=== PATIENT | female | born 1950 | race Caucasian/White ===

== ENCOUNTER → 2020-10-29 11:51 | Outpatient (CLI) | payer MEDICARE, SELFPAY | PROVIDERS: Visit Provider Internal Medicine Gastroenterology | DX: Z01.812 Encounter for preprocedural laboratory examination (principal); Z20.822 Contact with and (suspected) exposure to COVID-19; Z12.11 Encounter for screening for malignant neoplasm of colon | CPT/HCPCS: U0003 ==

== ENCOUNTER 2020-11-01 08:19 | Day surgery (SDC) | payer MEDICARE, SELFPAY ==
[2020-10-26 12:29] VITALS: BMI 24.9
[2020-11-01 08:46] VITALS: BP 161/81; PULSE 60; RESP 16; TEMP 36.7; O2SAT 98
--- NOTE | 2020-11-01 08:55 | P.PN_ITS ---
[facility] Anesthesia Checklist - Patient Identification Patient Identification: Arm Band - Structural Data Admitted From: Home Planned Operative Procedure/s: Colonoscopy Consent for Planned Operative Procedure(s) Verified: Yes - NPO Status Verified Time NPO: 00:00 - Airway Assessment C-Spine Mobility Assessed: Yes TMJ Mobility Assessed: Yes Dentition: Dentures-good fit - Neurological Assessment Level of Consciousness: Awake Hx Seizures: No Numbness or tingling in extremities: No - Anesthesia Plan Anesthesia Risk discussed: Yes Anesthesia Plan: Verified ASA Class: III Anesthesia Type: MAC [facility] History I have reviewed the patient's past medical history: Yes Medical History: Reports:: Chronic Obstructive Pulmonary Disease (COPD), Coronary Artery Disease, Hypertension Denies:: Cancer, Diabetes Mellitus Type 1, Diabetes Mellitus Type 2, Internal Pacemaker, MRSA, Seizures *Have you ever received a pneumonia vaccine?: Yes *Have you received a flu vaccine this season?: Yes Anesthesia experience/problems:: None Laterality Cases: Left: Other Other Surgeries: No: Pacemaker Amputation: No Fractures: No - *Social History Last grade of school completed: High school graduate Smoking Status: Never smoker Alcohol Intake: never Substance Use Type: denies use *Occupational Status:: retired Housing: house *Travel in the last 8 weeks: None Family Hx:: Cancer, Coronary Artery Disease
[2020-11-01 09:02] VITALS: O2SAT 98
--- NOTE | 2020-11-01 09:35 | HMH.PROC ---
[facility] Procedure Note Procedure Note:: Colonoscopy Procedure Report: Colonoscopy with cold snare polypectomy and hemorrhoid band ligation Endoscopist: Irving Brown II, MD Referring physician: Abdullahi Vasquez MD Date of Procedure: November 01, 2020 Equipment: Olympus 190 variable stiffness pediatric colonoscope Sedation: MAC sedation Indication: Mrs. Soni is a 70-year-old female who is here for colonoscopy. She has had some chronic constipation, bloating, gassiness and intermittent lower abdominal discomfort. She also notes bright red blood that occurs with most bowel movements daily which she attributes to possible internal hemorrhoids. She does have a personal history of adenomatous colon polyps. She had a colonoscopy with [facility] in June 2006. Her last colonoscopy 4 years ago (Dr. Morris [place]) revealed polyps which were removed. She reports no family history of colon cancer. She did have an ERCP with [facility] in December 2006. Procedure: Prior to the procedure, a history and physical exam was performed, and patient's medications and allergies were reviewed. The risks, benefits and alternatives of the sedation and procedure were discussed with the patient. All questions were answered and informed consent was obtained. The patient was brought to the procedure room. Patient identification and proposed procedure were verified by the physician and the nurse. The patient was placed in a left lateral decubitus position and the scope was passed under direct vision. Throughout the procedure, the patient's blood pressure, pulse, and oxygen saturations were monitored continuously. The colonoscopy was accomplished without difficulty. The patient tolerated the procedure well. Findings: On digital rectal examination there was normal rectal tone. There were no external hemorrhoids. The colonoscope was introduced through the anal canal to the rectum and advanced to the cecum. The ileocecal valve and appendiceal orifice were identified. The scope was advanced a short distance into the ileum which appeared grossly normal. The scope was then withdrawn into the colon. There were 11 colon polyps (cecum x4 (3, 5, 7 and 8 mm), ascending x2 (4 and 7 mm), transverse x2 (4 and 5 mm) and descending x3 (3, 4 and 4 mm)) which were all removed via cold snare polypectomy. There were extensive scattered diverticuli throughout the colon but more predominantly in the descending and sigmoid colon (LEFT colon). The rectum itself was normal. Upon retroflexion within the rectum there were grade 2 internal hemorrhoids. These 3 columns of hemorrhoids were banded using 3 bands with excellent ligation effect. The preparation was excellent throughout with [place] Preparation Score of 9. The cecal time was 18 minutes. Impression: 1. Colonic polyps x11 2. Extensive pandiverticulosis 3. Grade 2 internal hemorrhoids status post band ligation x3 Plan: I will follow up the polyp pathology and recommend repeat colonoscopy again in 1-2 years based upon the number of adenomatous polyps and adenomatous polyp histology. I would encourage dietary measures and a fiber bowel regimen on a long-term daily maintenance basis.
[2020-11-01 09:46] VITALS: BP 91/49; PULSE 57; RESP 12; TEMP 36.4; O2SAT 91
[2020-11-01 09:56] VITALS: BP 82/51; PULSE 50; RESP 16; O2SAT 95
[2020-11-01 10:06] VITALS: BP 110/63; PULSE 62; RESP 16; O2SAT 96
[2020-11-01 10:16] VITALS: BP 130/77; PULSE 53; RESP 16; TEMP 36.4; O2SAT 95
== END 2020-11-01 10:35 | disposition home or self-care (01) ==
LOC: OUTP 08:22
PROVIDERS: PCP Internal Medicine; Visit Provider Internal Medicine Gastroenterology
PROC: 0DJD8ZZ Inspection of Lower Intestinal Tract, Via Natural or Artificial Opening Endoscopic (ICD-10-PCS; CPT 45378; principal; 2020-11-01 09:30)
DX: Z86.010 Personal history of colon polyps (principal); K63.5 Polyp of colon; K57.30 Diverticulosis of large intestine without perforation or abscess without bleeding; K64.1 Second degree hemorrhoids; K59.09 Other constipation; K92.1 Melena; J44.9 Chronic obstructive pulmonary disease, unspecified; I25.10 Atherosclerotic heart disease of native coronary artery without angina pectoris; I10 Essential (primary) hypertension; Z80.9 Family history of malignant neoplasm, unspecified; Z82.49 Family history of ischemic heart disease and other diseases of the circulatory system; Z79.899 Other long term (current) drug therapy
CPT/HCPCS: 45385; 45398; 88305

== ENCOUNTER 2020-11-24 21:58 | Emergency (ER) | payer MEDICARE, SELFPAY ==
[2020-11-24 22:24] VITALS: BP 213/86; PULSE 64; RESP 18; TEMP 36.9; O2SAT 97; BMI 24.1
[2020-11-24 22:31] VITALS: BP 173/71; PULSE 59; O2SAT 93
--- NOTE | 2020-11-24 22:33 | XR_ITS ---
PROCEDURE INFORMATION: Exam: XR Right Ankle Exam date and time: 11/24/2020 10:33 PM Age: 70 years old Clinical indication: Pain; Right; Patient HX: Twisted ankle, bruising and edema on lateral side of foot and ankle; Additional info: Twisted and fell on foot TECHNIQUE: Imaging protocol: XR Right ankle. Views: 3 or more views. COMPARISON: No relevant prior studies available. FINDINGS: Bones/joints: Acute, nondisplaced fracture of the 5th metatarsal base, only seen on the mortise view. Moderate-sized plantar and small dorsal calcaneal enthesophytes. Soft tissues: Soft tissue swelling of ankle and foot laterally. IMPRESSION: Acute, nondisplaced fracture of the 5th metatarsal base. Consider dedicated foot radiographs for complete visualization.
--- NOTE | 2020-11-24 22:53 | HMH.EDLOEX ---
ED Disposition Clinical Impression: Flores fracture Qualifiers: Encounter type: initial encounter Fracture type: closed Laterality: right Qualified Code(s): S99.191A - Other physeal fracture of right metatarsal, initial encounter for closed fracture Disposition: Home, Self-Care Condition on Discharge: Good Instructions: DI for Foot Fracture Additional Instructions: ice and limited wt bearing and see dr rowley for follow up Referrals: Provider,Referral, [Primary Care Provider] - Adry Rowley DPM [Staff Physician] - - Critical Care Critical Care Time: No Attestation: On 11/24/20, the high probability of a clinically significant, sudden or life threatening deterioration of the following system(s) required my full and direct attention, intervention and personal management. The time I documented below is in addition to time spent performing reported procedures but includes the following listed in this critical care notation. Medical Decision Making - Medical Records Medical records reviewed: Yes: I reviewed the patient's medical records. - Jerry Inquiry Pt receiving controlled substance: No Vital Signs: 11/24/20 22:24 11/24/20 22:31 11/24/20 23:00 Temperature 98.5 F Temperature Source Oral Pulse Rate 59 L 55 L Pulse Rate [Right] 64 Respiratory Rate 18 Blood Pressure 173/71 H 174/78 H Blood Pressure [Right Arm] 213/86 H Blood Pressure Mean [Right Arm] 128 Blood Pressure Source [Right Arm] Automatic Cuff Blood Pressure Position [Right Arm] Supine 02 Sat by Pulse Oximetry 97 93 L 95 Oxygen Delivery Method Room Air 11/24/20 23:30 Temperature Temperature Source Pulse Rate 65 Pulse Rate [Right] Respiratory Rate Blood Pressure 194/90 H Blood Pressure [Right Arm] Blood Pressure Mean [Right Arm] Blood Pressure Source [Right Arm] Blood Pressure Position [Right Arm] 02 Sat by Pulse Oximetry 96 Oxygen Delivery Method - Lab Data Lab results reviewed: Yes: I reviewed the patient's lab results. Orders (Tests/Meds): ORDERS Category Date Time Status Ankle XR -Right minimum 3 Views [XR ankle RT min 3V] Exams 11/24/20 22:33 Taken Stat Foot XR right minimum 3 views [XR foot RT min 3V] Stat Exams 11/24/20 23:33 Taken - Radiology Data #1 Image(s): Ankle, Foot/Toes Image Reviewed: Yes I reviewed the patient's radiology image Preliminary Findings: Abnormal (flores type fx ) Medical Decision Narrative: will place in padded shoe Lower Extremity Injury HPI - General Chief Complaint: Extremity Injury, Lower Stated Complaint: AO 11/25 2039 injured r fOOT Time Seen by Provider: 11/24/20 22:50 Mode of Arrival: Wheelchair Source of Information: Patient, Medical Record Limitations: No Limitations Description of Symptoms (Recalled from ER Triage Doc. by RN): Pt stood up and rolled her right ankle [employer], bruising and Edema noted to foot and lateral ankle. Ice placed on foot and ext elevated. - History of Present Illness HPI Narrative: acute rt ankle /foot injury tonight with swelling and ecchymosis complaint: ankle injury, foot injury Onset (ago): hour(s) Injury: Right: ankle, foot Type of Injury: eversion Place: home Severity: moderate Context: fall Other symptoms: none - Related Data Home Medications Medication Instructions Recorded Confirmed Aspirin 81 mg PO DAILY 10/26/20 11/01/20 Bisoprolol/Hydrochlorothiazide 1 each PO DAILY 10/26/20 11/01/20 [Bisoprolol-Hctz 10-6.25 mg Tab] Hydroxychloroquine Sulfate 200 mg PO DAILY 10/26/20 11/01/20 [Plaquenil] Mecobalamin [B12 Active] 1,000 mcg PO DAILY 10/26/20 11/01/20 Omeprazole [Omeprazole 40mg 40 mg PO DAILY 10/26/20 11/01/20 Capsule] Potassium 99 mg PO DAILY 10/26/20 11/01/20 Pravastatin Sodium [Pravachol 40mg 40 mg PO HS 10/26/20 11/01/20 Tablet] lisinopriL [Lisinopril] 40 mg PO DAILY 10/26/20 11/01/20 prednisoLONE [Millipred Dp] 5 mg PO DAILY 10/26/20 11/01/20 Escitalopra
[2020-11-24 23:00] VITALS: BP 174/78; PULSE 55; O2SAT 95
[2020-11-24 23:30] VITALS: BP 194/90; PULSE 65; O2SAT 96
--- NOTE | 2020-11-24 23:33 | XR_ITS ---
PROCEDURE INFORMATION: Exam: XR Right Foot Exam date and time: 11/24/2020 11:33 PM Age: 70 years old Clinical indication: Pain; Right; Patient HX: Twisted ankle, bruising to lateral side of foot; Additional info: Swist fall TECHNIQUE: Imaging protocol: XR Right foot. Views: 3 or more views. COMPARISON: CR XR ANKLE RT MIN 3V 11/24/2020 11:05 PM FINDINGS: Bones/joints: Acute, nondisplaced fracture of the 5th metatarsal base, nearly occult on this exam. Scattered mild degenerative changes of the interphalangeal joints and TMT joints. Calcaneal enthesophytes. Soft tissues: Soft tissue swelling of the ankle and foot. IMPRESSION: Acute, nondisplaced fracture of the 5th metatarsal base.
[2020-11-25 00:13] VITALS: BP 181/71; PULSE 65; RESP 18; TEMP 36.9; O2SAT 96
== END 2020-11-25 00:17 | disposition home or self-care (01) ==
PROVIDERS: Emergency Provider Emergency Medicine
DX: S92.354A Nondisplaced fracture of fifth metatarsal bone, right foot, initial encounter for closed fracture (principal); X50.1XXA Overexertion from prolonged static or awkward postures, initial encounter; Y92.89 Other specified places as the place of occurrence of the external cause; I25.10 Atherosclerotic heart disease of native coronary artery without angina pectoris; J44.9 Chronic obstructive pulmonary disease, unspecified; I10 Essential (primary) hypertension; Z87.891 Personal history of nicotine dependence
CPT/HCPCS: 29515; 73610; 73630; 99282; 99283

== ENCOUNTER → 2020-12-09 11:22 | Outpatient (CLI) | payer MEDICARE, SELFPAY ==
[2020-12-09 11:43] LABS: Basophils # 0.1 K/mm3 (0-0.2); Basophils % 0.7 % (0.1-2.0); Eosinophils # 0.1 K/mm3 (0.0-0.4); Eosinophils % 1.4 % (0.1-12.0); Hemoglobin 13.7 g/dL (12.2-16.2); Lymphocytes # 1.1 K/mm3 (0.7-4.5); Lymphocytes % 12.3 % (10-50); Mean Corpuscular HGB Conc 35.1 g/dL (31.8-35.4); Mean Corpuscular Hemoglobin 33.5 pg (27.0-31.2); Mean Corpuscular Volume 95.5 fl (81-99); Mean Platelet Volume 7.4 fl (7.4-10.4); Monocytes # 0.5 K/mm3 (0.1-1.0); Monocytes % 5.5 % (1.7-9.3); Neutrophils # 7.2 K/mm3 (1.8-7.8); Platelet Count 234 K/mm3 (142-424); Red Blood Count 4.09 M/mm3 (4.20-5.40); Red Cell Distribution Width 13.2 % (11.5-17.5)
[2020-12-09 12:11] LABS: Erythrocyte Sedimentation Rate 14 mm/hr (0-30)
[2020-12-09 12:12] LABS: Chloride 103 mmol/L (98-107); Potassium 4.5 mmoL/L (3.5-5.1); Sodium 138 mmol/L (136-145)
[2020-12-09 12:14] LABS: Alanine Aminotransferase 17 U/L (12-78); Aspartate Amino Transferase 25 U/L (14-36); Blood Urea Nitrogen 20 mg/dl (7-17); Estimated Glomerular Filt Rate 62 ml/min (>60); GFR (African American) 74 ML/MIN (>60)
[2020-12-09 12:15] LABS: Albumin Level 4.7 g/dl (3.5-5.0); Albumin/Globulin Ratio 1.8 (1.1-1.8); Alkaline Phosphatase 63 U/L (38-126); Anion Gap 14.5 mEq/L (5-15); Bilirubin,Total 0.6 mg/dl (0.2-1.3); Calcium 10.3 mg/dl (8.4-10.2); Carbon Dioxide 25 mmol/L (22.0-30.0); Chol/HDL Ratio 3.3 (1-3.5); Cholesterol 191 mg/dl (140-200); Globulin 2.6 g/dL (1.3-3.2); Glucose 96 mg/dl (74-100); HDL Cholesterol 58 mg/dl (40-60); Total Protein,Serum 7.3 g/dl (6.3-8.2); Triglycerides 207 mg/dl (30-150); VLDL Cholesterol 41 mg/dL (0-40)
[2020-12-09 12:27] LABS: Direct LDL Cholesterol 82.01 mg/dL (100-129)
[2020-12-09 12:32] LABS: Triiodothryronine (T3) Uptake 33 % (23.5-40.5)
[2020-12-09 12:33] LABS: Free Thyroxine Index 2.6 ug/dL (5.93-13.13); T4 (Thyroxine) 7.9 ug/dl (5.53-11.0)
[2020-12-09 12:47] LABS: Thyroid Stimulating Hormone 1.62 uIU/mL (0.465-4.68)
[2020-12-10 16:26] LABS: Anti-Centromere B Antibodies <0.2 AI (0.0-0.9); Anti-DNA (DS) Ab Qn 3 IU/mL (0-9); Anti-Jo-1 <0.2 AI (0.0-0.9); Anti-Smith Antibody <0.2 AI (0.0-0.9); Antichromatin Antibodies <0.2 AI (0.0-0.9); Antiscleroderma-70 Antibodies <0.2 AI (0.0-0.9); RNP Antibodies 0.9 AI (0.0-0.9); Sjogren's Anti-SS-A <0.2 AI (0.0-0.9); Sjogren's Anti-SS-B <0.2 AI (0.0-0.9)
== END ==
PROVIDERS: Visit Provider Internal Medicine Adolescent Medicine
DX: I10 Essential (primary) hypertension (principal); M32.19 Other organ or system involvement in systemic lupus erythematosus
CPT/HCPCS: 36415; 80053; 80061; 84436; 84443; 84479; 85025; 85651; 86225; 86235

== ENCOUNTER → 2020-12-24 07:51 | Outpatient (CLI) | payer MEDICARE, SELFPAY ==
--- NOTE | 2020-12-24 07:54 | CT_ITS ---
PROCEDURE: CT LUNG SCREENING CLINICAL INDICATION: H/O NICOTINE DEPENDENCE Former smoker Quit smoking 3 years ago 50 pack year smoking history Copd, emphysema, cad, chf No prior COMPARISON: No exams were available for comparison TECHNIQUE: The exam was performed on a GE Light Speed [address] scanner using 2.90 mGy CTDI. A low dose helical CT CHEST was performed on a multi-detector scanner. All CT scans at the facility use one or more dose reduction, viz: automated exposure control, ma/kV adjustment per patient size (including targeted exams where dose is matched to indication, i.e. head), or iterative reconstruction technique. The LDCT was performed in a facility that meets the criteria for the screening program. Data regarding this exam was submitted to ACR which is an approved registry. The order for this exam indicates that it came as a result of a lung cancer screening counseling shard decision-making visit that included all the elements required of such a visit including smoking cessation. The radiologist interpreting this exam meets the CMS criteria for the LDCT lung cancer screening program. The exam is reported using the Lung-RADS classification scale and reported to the ACR registry. NOTE: This study was performed for the specific purposes of lung cancer screening and is not an alternative to diagnostic chest CT. RADIATION DOSE: CTDI vol(CT dose Index-volume) = 2.90mG DLP (Dose Length Product) = 104.46 mGcm FINDINGS: COPD changes. Evidence of old granulomatous disease. Scattered areas of scarring. No suspicious pulmonary nodules apparent OTHER FINDINGS: Severe coronary artery calcifications with stents present. Cardiomegaly with multi chamber enlargement. Medium-sized hiatal hernia. There are at least 3 hypodense lesions of the liver. The liver is incompletely imaged inferiorly. The largest of these is 1.6 cm in the right hepatic lobe posteriorly and medially segment 7. The common bile duct is prominent and incompletely imaged measuring 10 mm proximally. Wedge compression changes involve T7 with loss of height anteriorly of 50 percent which appears chronic. IMPRESSION: Lung-RADS Category 2 Benign Appearance or Behavior regarding pulmonary status. Indeterminate lesions are present in the liver and there is prominence of the common bile duct. Suggest CT with hemangioma protocol of the abdomen Follow-up: Recommend CT abdomen with hemangioma protocol for further evaluation regarding abdominal findings Recommend 12 month LDCT follow-up regarding lung screening status Dictated by: Maykel Mandujano MD 01/03/2021 08:42 Maykel Mandujano MD in [place] 01/03/2021 08:42
--- NOTE | 2020-12-24 07:57 | MM_ITS ---
PROCEDURE: MM DIG SCREENING MAMM BI W/CAD Digital Breast Tomosynthesis Included CLINICAL INDICATION: SCREENING COMPARISON: No exams were available for comparison TECHNIQUE: Standard CC and MLO images and 3D Tomosynthesis was obtained. R2 CAD reviewed. FINDINGS: Baseline exam. Average fibroglandular tissue. Bilateral benign-appearing partially calcified nodules and bilateral benign-appearing calcifications. No malignant appearing mass, suspicious microcalcification, skin thickening, or architectural distortion IMPRESSION: Benign findings BI-RAD Category: 2 Benign Finding FOLLOW-UP: 1 YR 1 Year Follow-up (A letter has been sent to the patient regarding results of the study.) Dictated by: Maykel Mandujano MD 12/31/2020 16:40 Maykel Mandujano MD in [place] 12/31/2020 16:40
== END ==
PROVIDERS: PCP Internal Medicine Adolescent Medicine; Visit Provider Internal Medicine Adolescent Medicine
DX: Z12.31 Encounter for screening mammogram for malignant neoplasm of breast (principal); Z13.820 Encounter for screening for osteoporosis; S99.1 Physeal fracture of metatarsal; Z78.0 Asymptomatic menopausal state; Z87.891 Personal history of nicotine dependence; Z12.2 Encounter for screening for malignant neoplasm of respiratory organs
CPT/HCPCS: 71271; 77063; 77067

== ENCOUNTER → 2020-12-27 09:08 | Outpatient (CLI) | payer MEDICARE, SELFPAY ==
--- NOTE | 2020-12-27 09:09 | XR_ITS ---
PROCEDURE: XR FOOT WT BEARING RT 3V CLINICAL INDICATION: Right 5th met fx COMPARISON: CR XR FOOT RT MIN 3V from 11/24/2020 FINDINGS: There remains a faint transverse lucency at the base of the 5th metatarsal consistent with a nondisplaced fracture best seen on the lateral view. The fracture line is better visualized than on the previous exam Mild osteoarthritic changes 1st MTP joint with minimal bunion formation at the distal aspect of the 1st metatarsal. Mild osteoarthritis at the tarsal metatarsal junction dorsally. Small calcaneal spur Other findings:None. IMPRESSION: Nondisplaced transverse fracture base of 5th metatarsal. Not significantly changed Dictated by: Maykel Mandujano MD 12/27/2020 13:10 Maykel Mandujano MD in [place] 12/27/2020 13:10
--- NOTE | 2020-12-27 09:11 | XR_ITS ---
PROCEDURE: XR DEXA AXIAL SKELETON CLINICAL HISTORY: CLOSED FRACTURE OF BASE OF FIFTH METATARSAL COMPARISON: No exams were available for comparison FINDINGS: The right hip BMD is 0.595 with a T-score of -2.3. The left hip BMD is 0.560 with a T-score of -2.6. The lumbar spine BMD is 0.798 with a T-score of -2.3. IMPRESSION: This patient is considered osteoporotic according to the World Health Organization criteria. Fracture risk is high. Treatment is advised. Based on these results a follow-up exam is recommended in 1 year. Dictated by: Maykel Mandujano MD 12/28/2020 10:24 Maykel Mandujano MD in [place] 12/28/2020 10:25
== END ==
PROVIDERS: PCP Internal Medicine Adolescent Medicine; Visit Provider Internal Medicine Adolescent Medicine
DX: S92.354A Nondisplaced fracture of fifth metatarsal bone, right foot, initial encounter for closed fracture (principal); Z13.820 Encounter for screening for osteoporosis; Z78.0 Asymptomatic menopausal state
CPT/HCPCS: 73630; 77080

== ENCOUNTER → 2021-03-01 12:36 | Outpatient (CLI) | payer MEDICARE, SELFPAY | PROVIDERS: Visit Provider Surgery | DX: Z01.812 Encounter for preprocedural laboratory examination (principal); Z11.52 Encounter for screening for COVID-19; Z13.810 Encounter for screening for upper gastrointestinal disorder | CPT/HCPCS: C9803; U0003; U0005 ==

== ENCOUNTER 2021-03-03 06:19 | Day surgery (SDC) | payer MEDICARE, SELFPAY ==
[2021-03-01 12:57] VITALS: BMI 22.4
[2021-03-03 06:33] VITALS: BP 148/65; PULSE 56; RESP 18; TEMP 36.6; O2SAT 99
[2021-03-03 07:27] VITALS: O2SAT 97
--- NOTE | 2021-03-03 07:38 | P.PCN_ITS ---
- Procedure: Date: 03/03/21 Patient Date of :: 1950 Procedure Performed:: Esophagogastroduodenoscopy with biopsy Indications:: Nausea and vomiting Performing Provider:: Colin Dalton MD Referring Provider:: Dr. Martinez Sedation:: Monitored anesthesia care Procedure:: After informed consent was obtained the patient was taken to the endoscopy maura te. Sedation ensued after the patient was transferred to the left lateral decubitus position. Pulse, blood pressure, and oxygen saturation were monitored throughout the procedure. The endoscope was advanced beyond the duodenal bulb. Retroflexion within the gastric lumen was accomplished. The gastroscope was carefully removed and the patient was transferred to recovery in stable condition. Please see findings and specimens below for detail. Findings:: Mild esophageal tortuosity Sliding hiatal hernia (moderate) Moderate patchy gastritis with increased inflammation along the mid and distal region Specimens:: Antral biopsy Mid gastric body biopsy Recommendations:: Follow-up pathology Consider UGI/SBFT Consider gastric emptying scan Complications:: No immediate Estimated blood obtained (mL): 1
[2021-03-03 07:40] VITALS: BP 115/61; PULSE 53; RESP 18; TEMP 36.2; O2SAT 93
[2021-03-03 07:50] VITALS: BP 126/71; PULSE 55; RESP 18; TEMP 36.2; O2SAT 92
[2021-03-03 08:00] VITALS: BP 132/68; PULSE 55; RESP 18; TEMP 36.2; O2SAT 92
[2021-03-03 08:12] VITALS: BP 137/78; PULSE 58; RESP 18; TEMP 36.2; O2SAT 92
--- NOTE | 2021-03-03 08:15 | P.PN_ITS ---
[facility] Anesthesia Checklist - Patient Identification Patient Identification: Arm Band - Structural Data Admitted From: Home Planned Operative Procedure/s: egd Consent for Planned Operative Procedure(s) Verified: Yes Verified Documents: Surgical Consent, History and Physical - NPO Status Verified Time NPO: 00:00 - Additional verifications Anesthesia Reactions: No - Airway Assessment C-Spine Mobility Assessed: Yes (mp2) TMJ Mobility Assessed: Yes Dentition: Edentulous - Neurological Assessment Level of Consciousness: Awake, Alert - Anesthesia Plan Anesthesia Risk discussed: Yes Anesthesia Plan: Verified ASA Class: III Anesthesia Type: MAC [facility] History I have reviewed the patient's past medical history: Yes Medical History: Reports:: Anxiety, Chronic Obstructive Pulmonary Disease (COPD), Coronary Artery Disease, Gastroesophageal Reflux Disease(GERD), Hyperlipidemia, Hypertension Denies:: Cancer, Diabetes Mellitus Type 1, Diabetes Mellitus Type 2, Internal Pacemaker, MRSA, Seizures *Have you ever received a pneumonia vaccine?: Yes *Have you received a flu vaccine this season?: Yes Other Medical History: Reports: Arthritis, Other Anesthesia experience/problems:: nac Laterality Cases: Left: Other Other Surgeries: Yes: Cardiac Catheterization, Cholecystectomy, Colonoscopy, Coronary Stent, Hysterectomy-Partial. No: Pacemaker Amputation: No Fractures: No - *Social History Last grade of school completed: High school graduate Smoking Status: Never smoker Alcohol Intake: never Substance Use Type: denies use *Occupational Status:: retired Housing: house *Travel in the last 8 weeks: None - Psychiatric History Pschychiatric History:: Reports:: Anxiety Family Hx:: Cancer, Heart Attack
== END 2021-03-03 08:12 | disposition home or self-care (01) ==
LOC: OUTP 06:20
PROVIDERS: PCP Internal Medicine Adolescent Medicine; Visit Provider Surgery
PROC: 0DJ08ZZ Inspection of Upper Intestinal Tract, Via Natural or Artificial Opening Endoscopic (ICD-10-PCS; CPT 43235; principal; 2021-03-03 07:30)
DX: K56.2 Volvulus (principal); K44.9 Diaphragmatic hernia without obstruction or gangrene; K29.60 Other gastritis without bleeding; I25.10 Atherosclerotic heart disease of native coronary artery without angina pectoris; J44.9 Chronic obstructive pulmonary disease, unspecified; I10 Essential (primary) hypertension; K21.9 Gastro-esophageal reflux disease without esophagitis; E78.5 Hyperlipidemia, unspecified; Z88.6 Allergy status to analgesic agent; Z79.82 Long term (current) use of aspirin; Z79.899 Other long term (current) drug therapy
CPT/HCPCS: 43239; 88305

== ENCOUNTER → 2021-03-10 09:32 | Outpatient (CLI) | payer MEDICARE, SELFPAY ==
--- NOTE | 2021-03-10 09:33 | NM_ITS ---
PROCEDURE: NM GASTRIC EMPTYING STUDY CLINICAL INDICATION: vimiting Nausea and vomiting COMPARISON: CT CT LUNG SCREENING from 12/24/2020 TECHNIQUE: DOSE: 0.5 mCi technetium sulfur colloid with radial labeled meal FINDINGS: The emptying half time is 64 minutes which is within normal limits. At 240 minutes there was 13 percent gastric retention Images submitted demonstrates activity within a hiatal hernia up to 30 minutes following ingestion. This could be related to retained activity within the hernia with delayed emptying or related to reflux into the hiatal hernia. Upper GI may further evaluate. IMPRESSION: 1. Normal gastric emptying time. 2. Images submitted demonstrates activity within a hiatal hernia up to 30 minutes following ingestion. This could be related to retained activity within the hernia with delayed emptying or related to reflux into the hiatal hernia. Upper GI may further evaluate Dictated by: Maykel Mandujano MD 03/11/2021 08:00 Maykel Mandujano MD in [facility] 03/11/2021 08:00
== END ==
PROVIDERS: PCP Internal Medicine Adolescent Medicine; Visit Provider Surgery
DX: R11.2 Nausea with vomiting, unspecified (principal)
CPT/HCPCS: 78264; A9541

== ENCOUNTER → 2021-03-16 08:41 | Outpatient (CLI) | payer MEDICARE, SELFPAY ==
--- NOTE | 2021-03-16 08:41 | FL_ITS ---
PROCEDURE: FL UPPER GI SMALL BOWEL CLINICAL INDICATION: vomiting COMPARISON: No exams were available for comparison FINDINGS: Fluoroscopy time: 2.34 minutes. Clean [employer] Grader [employer] Reel Tender exam shows a right iliac artery stent in place with a nonspecific bowel gas pattern. No esophageal lesion evident. Small anterior osteophytes are present at C5-C6 causing some minimal indentation upon the posterior aspect of the esophagus. There is a small hiatal hernia. The stomach and duodenum have an unremarkable appearance. No ulcer or mass apparent. The small bowel has an unremarkable appearance. No evidence of obstruction mass or mucosal abnormalities. Spot views of the terminal ileum are unremarkable. There are few small diverticula of the distal ileum. No large diverticula identified. IMPRESSION: 1. Hiatal hernia. 2. No ulcer or mass apparent of the stomach, duodenum, or small bowel 3. Scant diverticula of the distal ileum. Dictated by: Maykel Mandujano MD 03/16/2021 18:20 Maykel Mandujano MD in [facility] 03/16/2021 18:20
== END ==
PROVIDERS: PCP Internal Medicine Adolescent Medicine; Visit Provider Surgery
DX: R11.2 Nausea with vomiting, unspecified (principal)
CPT/HCPCS: 74246; 74248

== ENCOUNTER → 2021-05-04 11:43 | Outpatient (CLI) | payer MEDICARE, SELFPAY ==
[2021-05-04 11:56] LABS: Basophils # 0.1 K/mm3 (0-0.2); Basophils % 1.6 % (0.1-2.0); Eosinophils # 0.2 K/mm3 (0.0-0.4); Eosinophils % 2.8 % (0.1-12.0); Hematocrit 39.6 % (37.0-47.0); Hemoglobin 13.7 g/dL (12.2-16.2); Lymphocytes # 1.4 K/mm3 (0.7-4.5); Lymphocytes % 26.4 % (10-50); Mean Corpuscular HGB Conc 34.6 g/dL (31.8-35.4); Mean Corpuscular Hemoglobin 33.6 pg (27.0-31.2); Mean Corpuscular Volume 97.2 fl (81-99); Mean Platelet Volume 8.4 fl (7.4-10.4); Monocytes # 0.4 K/mm3 (0.1-1.0); Monocytes % 6.6 % (1.7-9.3); Neutrophils # 3.4 K/mm3 (1.8-7.8); Neutrophils % 62.7 % (37.0-80.0); Platelet Count 290 K/mm3 (142-424); Red Blood Count 4.08 M/mm3 (4.20-5.40); Red Cell Distribution Width 12.9 % (11.5-17.5); White Blood Count 5.5 K/mm3 (4.8-10.8)
[2021-05-04 12:46] LABS: Erythrocyte Sedimentation Rate 19 mm/hr (0-30)
[2021-05-04 12:57] LABS: Alanine Aminotransferase 15 U/L (12-78); Albumin Level 4.2 g/dl (3.5-5.0); Albumin/Globulin Ratio 1.6 (1.1-1.8); Alkaline Phosphatase 54 U/L (38-126); Aspartate Amino Transferase 25 U/L (14-36); Bilirubin,Total 0.3 mg/dl (0.2-1.3); Blood Urea Nitrogen 12 mg/dl (7-17); Calcium 10.2 mg/dl (8.4-10.2); Carbon Dioxide 29 mmol/L (22.0-30.0); Chloride 100 mmol/L (98-107); Chol/HDL Ratio 4.1 (1-3.5); Cholesterol 173 mg/dl (140-200); Estimated Glomerular Filt Rate 98 ml/min (>60); GFR (African American) 119 ML/MIN (>60); Globulin 2.6 g/dL (1.3-3.2); Glucose 85 mg/dl (74-100); HDL Cholesterol 42 mg/dl (40-60); Sodium 135 mmol/L (136-145); Total Protein,Serum 6.8 g/dl (6.3-8.2); Triglycerides 194 mg/dl (30-150); VLDL Cholesterol 39 mg/dL (0-40)
[2021-05-04 13:08] LABS: C-Reactive Protein 0.9 mg/L (0-4); Direct LDL Cholesterol 89.82 mg/dL (100-129)
== END ==
PROVIDERS: Visit Provider Internal Medicine Adolescent Medicine
DX: I10 Essential (primary) hypertension (principal); M32.19 Other organ or system involvement in systemic lupus erythematosus
CPT/HCPCS: 36415; 80053; 80061; 85025; 85651; 86140

== ENCOUNTER 2021-11-16 11:09 | Emergency (ER) | payer MEDICARE, SELFPAY ==
[2021-11-16] VITALS (8 sets, daily range): BP systolic 118–143; BP diastolic 50–74; PULSE 63–80; RESP 15–19; TEMP 36.8–36.9; O2SAT 95–97; BMI 22.6
--- NOTE | 2021-11-16 11:21 | XR_ITS ---
FINAL REPORT CLINICAL HISTORY: cough, back/lung pain FINDINGS: Two views of the chest were obtained. The heart size and pulmonary vascularity are within normal limits. The mediastinum is normal. No acute pulmonary abnormality is identified. There is no pneumothorax. The bony thorax is intact. There is a small hiatal hernia. IMPRESSION: No active cardiopulmonary disease. Reviewed, Interpreted and Dictated by Zackery Donato III, MD Transcribed by Briana Cortes Authenticated and [facility]
--- NOTE | 2021-11-16 11:24 | PC.NURSE ---
Blood and COVID swab sent to lab at this time.
--- NOTE | 2021-11-16 11:25 | PC.NURSE ---
RULA CAMEJO at speaking with patient
[2021-11-16 11:27] LABS: Coronavirus 19, PCR Not Detected (NotDetected); Influenza A, PCR Not Detected (NotDetected); Influenza B, PCR Not Detected (NotDetected)
--- NOTE | 2021-11-16 11:31 | HMH.EDGENADL ---
ED Disposition Clinical Impression: Gastroenteritis UTI (urinary tract infection) Qualifiers: Urinary tract infection type: site unspecified Hematuria presence: without hematuria Qualified Code(s): N39.0 - Urinary tract infection, site not specified Disposition: Home, Self-Care Condition on Discharge: Fair Instructions: DI for Urinary Tract Infection (UTI), DI for Viral Gastroenteritis -- Adult Additional Instructions: Additional instructions for URINARY TRACT INFECTION: Take antibiotic as prescribed. See your physician in 2-3 days for follow up and culture results. Return immediately if you have an uncontrollable fever greater than 102 degrees, severe back or abdominal pain, inability to urinate, or repetitive vomiting. Additional instructions for VOMITING/DIARRHEA: Zofran as needed for nausea. OTC Imodium as needed for diarrhea. See your physician as soon as possible for further evaluation. Drink plenty of fluids. Return immediately if severe abdominal pain, uncontrollable vomiting, shortness of breath, fever, bloody diarrhea, vomiting of blood or abdominal distention. Prescriptions: Cefdinir [Omnicef 300mg Capsule] 300 mg PO BID #20 cap Transmission Status: Pending to [facility] Ondansetron [Zofran 4mg ODT] 4 mg PO TIDP PRN #10 tab PRN Reason: Nausea And Vomiting Transmission Status: Pending to [facility] Referrals: Kelvin Martinez MD [Primary Care Provider] - - Critical Care Critical Care Time: No Attestation: On 11/16/21, the high probability of a clinically significant, sudden or life threatening deterioration of the following system(s) required my full and direct attention, intervention and personal management. The time I documented below is in addition to time spent performing reported procedures but includes the following listed in this critical care notation. Medical Decision Making - Jerry Inquiry Pt receiving controlled substance: Yes Jerry was queried for this patient: Yes Risks and benefits of using a controlled substance: were not discussed with pt by me Vital Signs: 11/16/21 11:10 11/16/21 11:30 11/16/21 12:00 Temperature 98.4 F Temperature Source Oral Pulse Rate 72 68 Pulse Rate [Left Radial] 80 Respiratory Rate 19 Blood Pressure 143/74 H 141/62 H Blood Pressure [Left Arm] 142/72 H Blood Pressure Mean 101 110 Blood Pressure Mean [Left Arm] 95 Blood Pressure Source [Left Arm] Automatic Cuff Blood Pressure Position [Left Arm] Right Lateral 02 Sat by Pulse Oximetry 95 96 95 Oxygen Delivery Method Room Air Room Air Room Air 11/16/21 13:01 Temperature Temperature Source Pulse Rate 66 Pulse Rate [Left Radial] Respiratory Rate 17 Blood Pressure 118/50 L Blood Pressure [Left Arm] Blood Pressure Mean 81 Blood Pressure Mean [Left Arm] Blood Pressure Source [Left Arm] Blood Pressure Position [Left Arm] 02 Sat by Pulse Oximetry 97 Oxygen Delivery Method - Lab Data Lab Results 11/16/21 11:21: WBC 7.6, RBC 4.12 L, Hgb 13.9, Hct 41.1, MCV 99.8 H, MCH 33.7 H, MCHC 33.8, RDW 13.0, Plt Count 276, MPV 7.7, Neut % (Auto) 79.6, Lymph % (Auto) 11.5, [place] % (Auto) 7.0, Eos % (Auto) 0.8, Baso % (Auto) 1.1, Neut # (Auto) 6.0, Lymph # (Auto) 0.9, [place] # (Auto) 0.5, Eos # (Auto) 0.1, Baso # (Auto) 0.1 11/16/21 11:21: Sodium 133 L, Potassium 3.6, Chloride 101, Carbon Dioxide 19 L, Anion Gap 16.6 H, BUN 12, Creatinine 0.60, Estimated Creat Clear 50, Estimated GFR 98, Est GFR ( Amer) 119, Glucose 127 H, Calcium 9.7, Total Bilirubin 0.6, AST 27, ALT 20, Alkaline Phosphatase 45, Total Protein 7.0, Albumin 4.1, Globulin 2.9, Albumin/Globulin Ratio 1.4, Lipase 89 11/16/21 11:21: SARS-CoV-2 (PCR) Not detected, Influenza A Untype (PCR) Not detected, Influenza Type B (PCR) Not detected 11/16/21 11:21: Troponin I < 0.01 11/16/21 12:53: Urine Color Yellow, Urine Appearance Clear, Urine pH 6.0, Ur Specific [place] 1.025, Urine Protei
[2021-11-16 11:32] LABS: Basophils # 0.1 K/mm3 (0-0.2); Basophils % 1.1 % (0.1-2.0); Eosinophils # 0.1 K/mm3 (0.0-0.4); Eosinophils % 0.8 % (0.1-12.0); Hematocrit 41.1 % (37.0-47.0); Hemoglobin 13.9 g/dL (12.2-16.2); Lymphocytes # 0.9 K/mm3 (0.7-4.5); Lymphocytes % 11.5 % (10-50); Mean Corpuscular HGB Conc 33.8 g/dL (31.8-35.4); Mean Corpuscular Hemoglobin 33.7 pg (27.0-31.2); Mean Corpuscular Volume 99.8 fl (81-99); Mean Platelet Volume 7.7 fl (7.4-10.4); Monocytes # 0.5 K/mm3 (0.1-1.0); Neutrophils % 79.6 % (37.0-80.0); Platelet Count 276 K/mm3 (142-424); Red Blood Count 4.12 M/mm3 (4.20-5.40); White Blood Count 7.6 K/mm3 (4.8-10.8)
[2021-11-16 11:36] LABS: Chloride 101 mmol/L (98-107); Potassium 3.6 mmoL/L (3.5-5.1); Sodium 133 mmol/L (136-145)
--- NOTE | 2021-11-16 11:37 | ECG_ITS ---
APPROVED REPORT Exam: Resting ECG HR:70 bpm ECG Measurements Heart Rate 70 AXES PA 173 P 97 QRSd 92 QRS 89 QT 397 T 88 QTc 417 Conclusion SINUS RHYTHM NORMAL ECG UNCONFIRMED REPORT Electronically signed by : Kelvin Martinez MD 11/17/2021 08:25:48
[2021-11-16 11:38] LABS: Blood Urea Nitrogen 12 mg/dl (7-17)
[2021-11-16 11:39] LABS: Alanine Aminotransferase 20 U/L (12-78); Albumin Level 4.1 g/dl (3.5-5.0); Albumin/Globulin Ratio 1.4 (1.1-1.8); Alkaline Phosphatase 45 U/L (38-126); Anion Gap 16.6 mEq/L (5-15); Aspartate Amino Transferase 27 U/L (14-36); Bilirubin,Total 0.6 mg/dl (0.2-1.3); Calcium 9.7 mg/dl (8.4-10.2); Carbon Dioxide 19 mmol/L (22.0-30.0); Creatinine Clearance Estimated 50 mL/min (50-200); Estimated Glomerular Filt Rate 98 ml/min (>60); GFR (African American) 119 ML/MIN (>60); Globulin 2.9 g/dL (1.3-3.2); Glucose 127 mg/dl (74-100); Lipase 89 U/L (23-300)
--- NOTE | 2021-11-16 11:44 | PC.NURSE ---
pt ambulatory to restroom with LEA Delcid. No complications
--- NOTE | 2021-11-16 11:51 | PC.NURSE ---
Patient was ambulated to bathroom with assistance. Patient stated she did not have to go. When arriving back to her room I asked if she needed anything and she stated no. Patient was given her call light and was told to use that if she needed us.
[2021-11-16 11:56] LABS: Troponin I < 0.01 ng/ml (0.00-0.034)
--- NOTE | 2021-11-16 12:52 | PC.NURSE ---
pt ambulatory to restroom to try and void, with assistance from LEA Rodriguez. No complications
[2021-11-16 13:09] LABS: Microscopic, Urine URINE MICROSCOPIC (MICROSCOPIC)
[2021-11-16 13:18] LABS: Appearance,Urine CLEAR (Clear); Blood, Urine TRACE-I (Negative); Color,Urine YELLOW (Yellow); Glucose,Urine (UA) Negative (Negative); Ketones,Urine 2+ (Negative); Leukocyte Esterase,Urine Negative (Negative); Nitrate,Urine Negative (Negative); Protein,Urine Negative (Negative); Specific Gravity, Urine 1.025 (1.005-1.030); Urobilinogen,Urine 0.2 EU/dl (0.2)
--- NOTE | 2021-11-16 13:20 | PC.NURSE ---
Called rad to check on status of readings of images. Was advised that they would check into it and call us back.
[2021-11-16 13:23] LABS: Bilirubin,Urine 2+ (Negative)
--- NOTE | 2021-11-16 13:25 | PC.NURSE ---
Update given to patients family out in waiting area, privately.
[2021-11-16 13:33] LABS: Bacteria,Urine 4+ /lpf; RBC,Urine Occasional #/hpf (0-3); Squamous Epithelial Cell,Urine Occasional #/hpf (0-5); WBC,Urine 20-50 #/hpf (0-3)
--- NOTE | 2021-11-16 13:44 | PC.NURSE ---
Pharmacy is going to mix Rocephin and send to ED
== END 2021-11-16 15:13 | disposition home or self-care (01) ==
PROVIDERS: Emergency Provider Emergency Medicine; PCP Internal Medicine Adolescent Medicine
DX: K52.9 Noninfective gastroenteritis and colitis, unspecified (principal); N39.0 Urinary tract infection, site not specified; Z88.6 Allergy status to analgesic agent; F41.9 Anxiety disorder, unspecified; J44.9 Chronic obstructive pulmonary disease, unspecified; I25.10 Atherosclerotic heart disease of native coronary artery without angina pectoris; K21.9 Gastro-esophageal reflux disease without esophagitis; E78.5 Hyperlipidemia, unspecified; I10 Essential (primary) hypertension
CPT/HCPCS: 71046; 80053; 81001; 83690; 84484; 85025; 87086; 87088; 87186; 93005; 96365; 96375; 99284; C9803; J0696; J2405; U0003; U0005

== ENCOUNTER → 2022-04-21 12:34 | Outpatient (CLI) | payer MEDICARE, SELFPAY ==
--- NOTE | 2022-04-21 12:38 | CT_ITS ---
FINAL REPORT CLINICAL HISTORY: H/O NICOTINE DEPENDENCE, QUIT SMOKING 4 YRS AGO, SMOKED FOR 40 YRS 2 PKS PER DAY COMPARISON: 12/24/2020 FINDINGS: Axial images were obtained from the lung apex to the mid abdomen by computed tomography. Low-dose protocol was utilized. CTDl vol(mGy): 2.90 DLP (mGy-cm): 105.25 FINDINGS: There is no axillary adenopathy. There is no hilar or mediastinal adenopathy. The heart size is normal. There is no pericardial or pleural effusion. Limited images of the upper abdomen demonstrate multiple low-attenuation hepatic masses which were seen on the prior exam. These are likely cysts but cannot be accurately characterized without contrast. There is extrahepatic biliary dilatation. There is moderate hiatal hernia. Lung window images demonstrate a calcified granuloma in the right lower lobe. Mild scarring is noted. There is no suspicious mass or nodule. IMPRESSION: Lung RADS category 1. Recommend 12 month follow-up low-dose chest CT. Reviewed, Interpreted and Dictated by Zackery Donato III, MD Transcribed by Ashely Pennington Authenticated and [facility]
== END ==
PROVIDERS: PCP Internal Medicine Adolescent Medicine; Visit Provider Internal Medicine Adolescent Medicine
DX: Z87.891 Personal history of nicotine dependence (principal); Z12.2 Encounter for screening for malignant neoplasm of respiratory organs
CPT/HCPCS: 71271

== ENCOUNTER → 2022-05-30 10:29 | Outpatient (POV) | payer MEDICARE, SELFPAY | PROVIDERS: Visit Provider Dermatology | DX: Z00.00 Encounter for general adult medical examination without abnormal findings (principal) ==

== ENCOUNTER 2022-08-09 17:05 | Emergency (ER) | payer MEDICARE, SELFPAY ==
--- NOTE | 2022-08-09 18:34 | EXP.UTC ---
Discharge Plan Disposition Patient Disposition: Home, Self-Care Condition: Good Prescriptions Prescriptions: New promethazine 25 mg Tablet 25 mg PO Q6H PRN (Reason: Nausea And Vomiting) Qty: 20 0RF No Action Anoro Ellipta 62.5-25 mcg/actuation blister with device 1 unit INHALATION DAILY pravastatin 40 MG tablet 40 mg PO HS bisoprolol-hydrochlorothiazide 1 EACH tablet 1 each PO DAILY omeprazole 40 MG capsule,delayed release(DR/EC) 40 mg PO DAILY potassium 99 MG tablet 99 mg PO DAILY aspirin 81 MG tablet,chewable 81 mg PO DAILY hydroxychloroquine 200 MG tablet 200 mg PO DAILY lisinopril 40 MG tablet 40 mg PO DAILY mecobalamin (vitamin B12) 1,000 MCG tablet,chewable 1,000 mcg PO DAILY escitalopram oxalate 5 MG tablet 5 mg PO DAILY amlodipine 10 mg tablet 10 mg PO DAILY losartan 100 mg tablet 100 mg PO DAILY Referrals Follow up/Referrals: Kelvin Martinez MD [Primary Care Provider] - See instructions Activity Restrictions/Add. Instructions Additional Instructions/Restrictions: Drink plenty of fluids. Take tylenol or ibuprofen for pain or fever. Take the medications as directed. Follow up with your regular doctor. GO TO THE ER FOR ANY WORSENING SYMPTOMS The promethazine will make you drowsy, so don't drive or operate heavy machinery after taking it. Make sure you go from sitting to standing slowly and do not fall. Make sure that you follow up with your eye doctor as scheduled and discuss these symptoms. Clinical Impressions Clinical Impression: Gastroenteritis Instructions Patient Instructions: DI for Viral Gastroenteritis -- Adult, Promethazine Discharge ED Provider: Gaurang Soler [facility] General Stated complaint: nausea,vomiting, reflux Time Seen by Provider: 08/09/22 18:34 History of Present Illness Provider Complaint: She states that she has had n/v/d since earlier today. She has had diarrhea multiple times and she has vomited multiple times since then. She had cataract surgery on her left eye yesterday. She denies any eye pain and headache. Related Data Home Medications Medication Instructions Recorded Confirmed aspirin 81 mg chewable tablet 81 mg PO DAILY heart health 10/26/20 03/23/21 bisoprolol 10 1 each PO DAILY bp 10/26/20 08/10/22 mg-hydrochlorothiazide 6.25 mg tablet hydroxychloroquine 200 mg tablet 200 mg PO DAILY ra/lupus 10/26/20 08/10/22 lisinopril 40 mg tablet 40 mg PO DAILY bp 10/26/20 03/23/21 mecobalamin (vitamin B12) 1,000 1,000 mcg PO DAILY Supplement 10/26/20 03/23/21 mcg chewable tablet omeprazole 40 mg capsule,delayed 40 mg PO DAILY stomach 10/26/20 08/10/22 release potassium 99 mg tablet 99 mg PO DAILY Supplement 10/26/20 03/23/21 pravastatin 40 mg tablet 40 mg PO HS Cholesterol 10/26/20 08/10/22 escitalopram oxalate 5 mg tablet 5 mg PO DAILY Depression 11/01/20 08/10/22 umeclidinium 62.5 mcg-vilanterol 1 unit inhalation DAILY emphasema 11/25/20 03/23/21 25 mcg/actuation powdr for inhalation (Anoro Ellipta) amlodipine 10 mg tablet 10 mg PO DAILY . 08/10/22 08/10/22 losartan 100 mg tablet 100 mg PO DAILY . 08/10/22 08/10/22 Previous Rx's Medication Instructions Recorded promethazine 25 mg tablet 25 mg PO Q6H PRN Nausea And 08/09/22 Vomiting #20 tabs Allergies Allergy/AdvReac Type Severity Reaction Status Date / Time codeine AdvReac Nausea Verified 08/09/22 18:45 PFSH PFS Disclaimer: The information contained in this section may have been updated after the patient was seen, as this information can be updated by other users. Social History Smoking Status: Never smoker second hand exposure: No alcohol intake: never substance use type: denies use current occupational status: retired Travel in the last 8 weeks: None housing: house current occupational exposures/hazar
[2022-08-09 18:40] VITALS: BP 154/79; PULSE 61; RESP 20; TEMP 36.6; O2SAT 97; BMI 24.1
[2022-08-09 19:02] LABS: UTC Strep Screen (Rapid) Negative (Negative)
--- NOTE | 2022-08-09 19:25 | PC.NURSE ---
Pt's daughter is in room. She states that she has taken promethazine before. I educated that it may make her drowzy, and she stated she understood.
[2022-08-09 19:50] VITALS: BP 154/79; PULSE 61; RESP 20; TEMP 36.6; O2SAT 97
== END 2022-08-09 20:15 | disposition home or self-care (01) ==
PROVIDERS: Emergency Provider Nurse Practitioner Family; PCP Internal Medicine Adolescent Medicine
DX: K52.9 Noninfective gastroenteritis and colitis, unspecified (principal); B34.9 Viral infection, unspecified
CPT/HCPCS: 96372; 87880; 99212; 99214; G0463

== ENCOUNTER → 2022-10-24 13:02 | Outpatient (POV) | payer MEDICARE, SELFPAY | PROVIDERS: Visit Provider Dermatology | DX: Z00.00 Encounter for general adult medical examination without abnormal findings (principal) ==

== ENCOUNTER 2022-12-16 13:05 | Emergency (ER) | payer MEDICARE, SELFPAY ==
[2022-12-16 13:05] VITALS: BP 169/81; PULSE 56; RESP 18; TEMP 36.8; O2SAT 95; BMI 22.4
--- NOTE | 2022-12-16 14:00 | CT_ITS ---
PROCEDURE INFORMATION: Exam: CT Lumbar Spine Without Contrast Exam date and time: 12/16/2022 3:05 PM Age: 72 years old Clinical indication: Low back pain; Additional info: Lowback pain/ ttp TECHNIQUE: Imaging protocol: Computed tomography of the lumbar spine without contrast. Radiation optimization: All CT scans at this facility use at least one of these dose optimization techniques: automated exposure control; mA and/or kV adjustment per patient size (includes targeted exams where dose is matched to clinical indication); or iterative reconstruction. REPORTING DATA: Count of CT and Cardiac NM exams in prior 12 months: This patient has received [address] and 0 known cardiac nuclear medicine studies in the 12 months prior to the current study. COMPARISON: NM GASTRIC EMPTYING STUDY 03/10/2021 10:06 AM FINDINGS: Bones/joints: Focal kyphosis L1-L2 level. Alignment is otherwise maintained. Age-indeterminate but chronic appearing compression deformities at L4 and L2 vertebrae with approximately 15 and 25% height loss respectively. Sacroiliac joints are intact. There is no significant osseous encroachment of the spinal canal or neural foraminal narrowing at any level. Vasculature: The aorta demonstrates moderate atherosclerotic calcification. There is a stent graft in the right common iliac artery Soft tissues: Unremarkable. IMPRESSION: Age-indeterminate but chronic appearing compression deformities at L4 and L2 vertebrae with approximately 15 and 25% height loss respectively.
--- NOTE | 2022-12-16 14:14 | PC.NURSE ---
pt ambulatory to restroom without complications
[2022-12-16 14:37] VITALS: BP 131/66; PULSE 52; RESP 18; O2SAT 96
[2022-12-16 14:39] LABS: Microscopic, Urine URINE MICROSCOPIC (MICROSCOPIC)
[2022-12-16 14:40] LABS: Appearance,Urine CLEAR (Clear); Bilirubin,Urine Negative (Negative); Blood, Urine Negative (Negative); Color,Urine YELLOW (Yellow); Glucose,Urine (UA) Negative (Negative); Ketones,Urine Negative (Negative); Leukocyte Esterase,Urine Negative (Negative); Nitrate,Urine Negative (Negative); Protein,Urine Negative (Negative); Specific Gravity, Urine <= 1.005 (1.005-1.030); Urobilinogen,Urine 0.2 EU/dl (0.2)
--- NOTE | 2022-12-16 14:40 | PC.NURSE ---
Rounded on patient; Warm blanket given, no needs at this time. Call page within reach.
[2022-12-16 14:54] LABS: Squamous Epithelial Cell,Urine Occasional #/hpf (0-5)
[2022-12-16 15:30] VITALS: BP 145/76; PULSE 54; O2SAT 95
--- NOTE | 2022-12-16 16:25 | HMH.EDGENADL ---
Discharge Plan Disposition Patient Disposition: Home, Self-Care Condition: Good Prescriptions Prescriptions: New lidocaine [Lidoderm] 5 % adhesive patch,medicated 1 patch topical DAILY Qty: 3 0RF Rx Instructions: leave on most painful area for up to 12 hrs. remove for at least 12 hours at a time. No Action Anoro Ellipta 62.5-25 mcg/actuation blister with device 1 unit INHALATION DAILY pravastatin 40 MG tablet 40 mg PO HS bisoprolol-hydrochlorothiazide 1 EACH tablet 1 each PO DAILY omeprazole 40 MG capsule,delayed release(DR/EC) 40 mg PO DAILY potassium 99 MG tablet 99 mg PO DAILY aspirin 81 MG tablet,chewable 81 mg PO DAILY hydroxychloroquine 200 MG tablet 200 mg PO DAILY lisinopril 40 MG tablet 40 mg PO DAILY mecobalamin (vitamin B12) 1,000 MCG tablet,chewable 1,000 mcg PO DAILY escitalopram oxalate 5 MG tablet 5 mg PO DAILY promethazine 25 mg Tablet 25 mg PO Q6H PRN (Reason: Nausea And Vomiting) Qty: 20 0RF amlodipine 10 mg tablet 10 mg PO DAILY losartan 100 mg tablet 100 mg PO DAILY Referrals Follow up/Referrals: Kelvin Martinez MD [Primary Care Provider] - See instructions Activity Restrictions/Add. Instructions Additional Instructions/Restrictions: Take Tylenol or ibuprofen if needed for pain. Do not exceed recommended doses on the bottle. Use the prescribed lidocaine patches as directed for further pain relief. Follow-up with your primary care physician in 2 days for reevaluation. Return to the emergency department with new or worsening symptoms. Clinical Impressions Clinical Impression: Low back pain Discharge ED Provider: Alisia Dan Adult [facility] General Chief complaint: PAIN Stated complaint: Back pain no known accident Time Seen by Provider: 12/16/22 13:49 Mode of Arrival: Ambulatory Source of Information: Patient Limitations: No Limitations Description of Symptoms (Recalled from ER Triage Doc. by RN): c/o lower back pain that started 2 weeks ago, unable to get herself up out of the chair without help. Denies any injury. States that one week ago she might of had a kidney stone, states she went to the bathroom and couldnt urinated, went back to bed and then returned to the bathroom and was able to urinate, urine had blood at that time. Pt states that pain never went away and she continued to get worse pain. States she feels like her back catches when trying to stand and it takes her to her knees. History of Present Illness HPI narrative: This 72-year-old female presents to the emergency department with 2 weeks of low back pain. Patient states she has not had any traumatic injuries. She states she has been having midline low back pain and had stated that 1 week ago she thought she might have a urinary tract infection but her symptoms spontaneously improved. Patient states she does not have significant history of prior back problems. Patient denies numbness, tingling, lower extremity weakness, bowel or bladder incontinence. Related Data Home Medications Medication Instructions Recorded Confirmed aspirin 81 mg chewable tablet 81 mg PO DAILY heart health 10/26/20 03/23/21 bisoprolol 10 1 each PO DAILY bp 10/26/20 08/10/22 mg-hydrochlorothiazide 6.25 mg tablet hydroxychloroquine 200 mg tablet 200 mg PO DAILY ra/lupus 10/26/20 08/10/22 lisinopril 40 mg tablet 40 mg PO DAILY bp 10/26/20 03/23/21 mecobalamin (vitamin B12) 1,000 1,000 mcg PO DAILY Supplement 10/26/20 03/23/21 mcg chewable tablet omeprazole 40 mg capsule,delayed 40 mg PO DAILY stomach 10/26/20 08/10/22 release potassium 99 mg tablet 99 mg PO DAILY Supplement 10/26/20 03/23/21 pravastatin 40 mg tablet 40 mg PO HS Cholesterol 10/26/20 08/10/22 escitalopram oxalate 5 mg tablet 5 mg PO DAILY Depression 11/01/20 08/10/22 umeclidinium 62.5 mcg-vilanterol 1 unit inhalation DAILY emphasema 11/25/20 03/23/21 25 mcg/actuation powd
[2022-12-16 16:38] VITALS: BP 141/78; PULSE 58; RESP 20; TEMP 36.8; O2SAT 98
== END 2022-12-16 16:39 | disposition home or self-care (01) ==
PROVIDERS: Emergency Provider Emergency Medicine; PCP Internal Medicine Adolescent Medicine
DX: M54.50 Low back pain, unspecified (principal); Z87.891 Personal history of nicotine dependence
CPT/HCPCS: 72131; 81001; 99284

== ENCOUNTER → 2022-12-25 12:57 | Outpatient (POV) | payer MEDICARE, SELFPAY ==
[2022-12-25 13:53] VITALS: BP 175/73; PULSE 58; RESP 18; O2SAT 97; BMI 22.1
--- NOTE | 2022-12-25 15:51 | EXP.PAIN.OV ---
HPI Data of Consult Patient: new to practice Consult date: 12/25/22 Requesting Physician: Judy Lynch APRN Consult Narrative Reason for consult: Low back pain History of present illness: Ms. Soni is a 72 year old female who presents today as a new patient. She is a referral from Dr. Martinez's office. Today she rates her pain a 10 out of 10. Patient states she is experiencing pain all in her low back and describes it as an aching, throbbing, sharp pain that has been going on for approximately 3 weeks. Patient denies any significant injury or trauma that initially led to her symptoms. She states that she was just around her home when the pain started and progressively worsened since. Patient does state that she has a history of osteoporosis and was on Prolia for 1 injection however they never had her continue any additional. Patient does have a history of lupus. Patient has tried fbhb-gyl-gnprogj medications such as Tylenol along with heat and ice and topicals including lidocaine patches with no additional relief. Patient denies any previous back surgery or injective history. Patient does state that Dr. Martinez's office has just called her in pain medication however she is unsure what specific one it was. Patient states that she has had codeine before and could not tolerate it. Patient states she will frequently get sick to her stomach with certain medications. She does state over 1 year ago she had a fall that caused a fracture of her foot however she does not recall any imaging to her low back. Patient did have imaging done by her physician that did show compression fractures. She does state that her pain is all around her pants line and does go into her hips. The pain does interfere with her ability perform activities of daily living or even simple ambulation. Patient does state that she is on prednisone on a regular basis and has been for years. CC: Jduy Lynch APRN [facility] Disclaimer: The information contained in this section may have been updated after the patient was seen, as this information can be updated by other users. Medical History (Updated 12/25/22 @ 15:59 by Judy Lynch APRN) Anxiety Arthritis CAD (coronary artery disease) COPD (chronic obstructive pulmonary disease) GERD (gastroesophageal reflux disease) HLD (hyperlipidemia) HTN (hypertension) Surgical History (Updated 12/25/22 @ 14:03 by Faith E Works, RN) H/O blepharoplasty H/O colonoscopy Social History (Updated 12/25/22 @ 14:04 by Faith Troy RN) Smoking Status: Former smoker second hand exposure: No alcohol intake: never substance use type: denies use current occupational status: retired Travel in the last 8 weeks: None housing: house current occupational exposures/hazards: No caffeine: Yes Review of Systems Review of Systems Review of systems:: pertinent systems reviewed and negative unless documented below Review of systems (narrative): Review of Systems: General: No recent weight changes, no fever, no sleep disturbances Respiratory: No cough, no shortness of air, no recurring pulmonary infections Cardiovascular/peripheral vascular: No chest pain, no palpitations, no edema, no shortness of breath Gastrointestinal: No new onset incontinence, normal bowel movements reported Genitourinary: No new onset incontinence Musculoskeletal: Low back pain, hip pain Psychiatric: [Normal mood/affect] Neurological: [Denies weakness in extremities], [denies balance issues] Meds Home Medications and Allergies Home Medications Medication Instructions Recorded Confirmed Type aspirin 81 mg chewable tablet 81 mg PO DAILY heart health 10/26/20 12/25/22 History bisoprolol 10 1 each PO DAILY bp 10/26/20 12/25/22 History mg-hydrochlorothiazide 6.25 mg tablet hydroxychloroquine 200 mg tablet 200 mg PO DAILY ra/lupus 10/26/20 12/25/22 History lisinopril 40 mg tablet 40 mg PO DAILY bp 10/26/20 12/25/22 History [place]
== END | disposition home or self-care (01) ==
PROVIDERS: Visit Provider Nurse Practitioner Family
DX: M54.42 Lumbago with sciatica, left side (principal); M54.41 Lumbago with sciatica, right side; G89.29 Other chronic pain; M51.36 Other intervertebral disc degeneration, lumbar region; M46.1 Sacroiliitis, not elsewhere classified; M84.48XS Pathological fracture, other site, sequela
CPT/HCPCS: 99202; G0463

== ENCOUNTER → 2023-01-03 08:59 | Outpatient (CLI) | payer MEDICARE, SELFPAY ==
--- NOTE | 2023-01-03 09:07 | XR_ITS ---
FINAL REPORT TECHNIQUE: Bone densitometry calculations of the lumbar spine and left hip were obtained. CLINICAL HISTORY: COMP FX. L2 AND L4 FINDINGS: Using L1-4, the bone mineral density of the spine is 0.838 g/cm2, corresponding to T-score of -1.9. Using the left hip, the bone mineral density of the femoral neck is 0.571 g/cm2, corresponding to a T-score of -2.5. Using the right hip, the bone mineral density of the femoral neck is 0.606 g/cm2, corresponding to a T-score of -2.2. NOTE: T-score: Standard deviation compared with peak bone mass of young adult mean. *Following the recommendations of the International Society of Bone Densitometry, classification of hip BMD is based on the lower of two T-scores; total hip or femoral neck. IMPRESSION: Osteoporosis: Lowest T-score is at or below -2.5. This patient''s T-score meets the World Health Organization criteria for osteoporosis. FRAX was not reported because some of the T-scores are at or below-2.5. Reviewed, Interpreted and Dictated by Zackery Donato III, MD Transcribed by Aileen Ibarra Authenticated and [facility]
== END ==
PROVIDERS: PCP Internal Medicine Adolescent Medicine; Visit Provider Nurse Practitioner Family
DX: M81.0 Age-related osteoporosis without current pathological fracture (principal); S32.020A Wedge compression fracture of second lumbar vertebra, initial encounter for closed fracture; S32.040A Wedge compression fracture of fourth lumbar vertebra, initial encounter for closed fracture; Z78.0 Asymptomatic menopausal state
CPT/HCPCS: 77080

== ENCOUNTER 2023-01-05 11:47 | Day surgery (SDC) | payer MEDICARE, SELFPAY ==
[2023-01-05 11:50] VITALS: BP 162/75; PULSE 59; RESP 18; TEMP 36.4; O2SAT 96; BMI 22.1
[2023-01-05 12:01] VITALS: PULSE 63; RESP 18; O2SAT 97
[2023-01-05 12:02] VITALS: BP 176/98; PULSE 62; RESP 18; O2SAT 97
--- NOTE | 2023-01-05 12:07 | P.PCN_ITS ---
Procedure Date: 01/05/23 Time: 12:10 Anesthesiologist:: Sammy Ovalle CRNA Complications:: None Pre-procedure Diagnosis:: Degenerative disc disease lumbar spine multilevels. Lumbar radiculopathy. Bilateral sacroiliitis. lumbar spondylosis. Post-procedure Diagnosis:: Same. Indications for Procedure:: Patient is a very pleasant 72-year-old female comes our clinic today for bilateral sacroiliac joint injections. Patient reports pain in the posterior hip area bilaterally. Patient describes having difficulty sitting and standing for any length of time. Also, difficulty transitioning from sitting to standing. Upon examination patient has extreme point tenderness over the bilateral sacroiliac joints. She rates her pain 8/10. Procedure Details:: Procedure: Bilateral sacroiliac joint injections under fluoroscopy Informed consent was obtained and the risks and benefits of the procedure were explained to the patient.~ The patient was taken to the procedure room and noninvasive monitors were placed including a noninvasive blood pressure cuff and pulse oximeter.~ The patient was placed prone on the procedure table. Both hips were cleansed using Betadine as a cleansing solution. C-arm fluoroscopy was used to view the right sacroiliac joint.~ The skin and subcutaneous tissues were anesthetized using lidocaine 1.5% and a 25-gauge needle.~ After this, a 22-gauge spinal needle was inserted under fluoroscopic guidance into the inferior aspect of the right sacroiliac joint.~ Omnipaque dye was injected and good spread was seen throughout the joint.~ After this, approximately 5 mL of bupivacaine, 0.25% and Depo-Medrol, 40 mg was incrementally injected into the right sacroiliac joint. We then moved to the left sacroiliac joint.~ The skin and subcutaneous tissues were anesthetized using lidocaine 1.5% and a 25-gauge needle.~ After this, a 22- gauge spinal needle was inserted under fluoroscopic guidance into the inferior aspect of the left sacroiliac joint.~ Omnipaque dye was injected and good spread was seen throughout the joint. After this, approximately 5 mL of bupivacaine, 0.25% and Depo-Medrol, 40 mg was incrementally injected into the left sacroiliac joint.~ The patient tolerated the procedure well with no complications. The patient was observed in the Pain Clinic and then was discharged home neurologically intact. Plan and Disposition:: Patient was discharged without incident.
[2023-01-05 12:11] VITALS: BP 145/69; PULSE 56; RESP 18; O2SAT 96
== END 2023-01-05 12:11 | disposition home or self-care (01) ==
PROVIDERS: PCP Internal Medicine Adolescent Medicine; Visit Provider Nurse Anesthetist, Certified Registered
DX: M46.1 Sacroiliitis, not elsewhere classified (principal); M51.16 Intervertebral disc disorders with radiculopathy, lumbar region; M47.26 Other spondylosis with radiculopathy, lumbar region
CPT/HCPCS: 27096; G0260; J1040

== ENCOUNTER 2023-01-08 14:22 | Emergency (ER) | payer MEDICARE, SELFPAY ==
[2023-01-08] VITALS (13 sets, daily range): BP systolic 148–179; BP diastolic 70–90; PULSE 53–66; RESP 18–20; TEMP 36.7–36.8; O2SAT 91–98; BMI 22.1
--- NOTE | 2023-01-08 14:31 | CT_ITS ---
FINAL REPORT TECHNIQUE: Axial imaging of the lumbar spine was obtained without contrast. Reformatted images were also obtained and reviewed.This study was performed with techniques to keep radiation doses as low as reasonably achievable, (ALARA). Individualized dose reduction techniques using automated exposure control or adjustment of mA and/or kV according to the patient's size were employed. CLINICAL HISTORY: severe SI joint pain and midline L spine pain- had back injections done sunday COMPARISON: 12/16/2022 FINDINGS: There are chronic L2 and L4 compression fractures. There is a mild inferior endplate L3 compression fracture which is new from prior exam with 30% loss of height. There is no malalignment. Facets are properly aligned. Prevertebral soft tissues unremarkable. T12-L1: Annular disc bulge. L1-2: Annular disc bulge with facet arthropathy and osteophytes. Mild bilateral neuroforaminal narrowing. L2-3: Annular disc bulge with facet arthropathy and osteophytes. Left foraminal disc protrusion with moderate right and severe left neuroforaminal narrowing. L3-4: Annular disc bulge with facet arthropathy and osteophytes. Moderate bilateral neuroforaminal narrowing. L4-5: Annular disc bulge with facet arthropathy and mild bilateral neuroforaminal narrowing. L5-S1: Annular disc bulge with facet arthropathy. IMPRESSION: New L3 inferior endplate compression fracture. Worsening left foraminal disc protrusion T3. Findings can be further evaluated with MRI. Reviewed, Interpreted and Dictated by Zackery Donato III, MD Transcribed by Malini Freeman Authenticated and [facility]
--- NOTE | 2023-01-08 14:31 | CT_ITS ---
FINAL REPORT TECHNIQUE: Axial imaging of the pelvis was obtained without contrast.This study was performed with techniques to keep radiation doses as low as reasonably achievable, (ALARA). Individualized dose reduction technique using automated exposure control or adjustment of mA and/or kV according to the patient's size were employed. CLINICAL HISTORY: severe pain SI joint bilaterally- had back injections done Sunday FINDINGS: There is no acute fracture or dislocation. Femoral heads are located bilaterally. There are mild degenerative changes of the SI joints. There is a right anterior pelvic wall hernia containing an unobstructed loop of bowel. Right iliac artery stent is noted. Sacral ala are intact. IMPRESSION: Mild degenerative changes of the SI joints. No acute bony abnormality. Reviewed, Interpreted and Dictated by Zackery Donato III, MD Transcribed by Malini Freeman Authenticated and [facility]
--- NOTE | 2023-01-08 14:38 | HMH.EDGENADL ---
Discharge Plan Disposition Patient Disposition: Home, Self-Care Condition: Good Prescriptions Prescriptions: New oxycodone 5 mg capsule 5 mg PO Q8H PRN (Reason: pain) Qty: 10 0RF No Action Anoro Ellipta 62.5-25 mcg/actuation blister with device 1 unit INHALATION DAILY pravastatin 40 MG tablet 40 mg PO HS bisoprolol-hydrochlorothiazide 1 EACH tablet 1 each PO DAILY omeprazole 40 MG capsule,delayed release(DR/EC) 40 mg PO DAILY potassium 99 MG tablet 99 mg PO DAILY aspirin 81 MG tablet,chewable 81 mg PO DAILY hydroxychloroquine 200 MG tablet 200 mg PO DAILY lisinopril 40 MG tablet 40 mg PO DAILY mecobalamin (vitamin B12) 1,000 MCG tablet,chewable 1,000 mcg PO DAILY escitalopram oxalate 5 MG tablet 5 mg PO DAILY promethazine 25 mg Tablet 25 mg PO Q6H PRN (Reason: Nausea And Vomiting) Qty: 20 0RF amlodipine 10 mg tablet 10 mg PO DAILY losartan 100 mg tablet 100 mg PO DAILY baclofen 10 mg tablet 10 mg PO BID lidocaine [Lidoderm] 5 % adhesive patch,medicated 1 patch topical DAILY Rx Instructions: leave on most painful area for up to 12 hrs. remove for at least 12 hours at a time. ondansetron 4 mg tablet,disintegrating 4 mg PO Q8H PRN (Reason: nausea and vomiting) Qty: 30 0RF Referrals Follow up/Referrals: Ramírez Butcher MD [Referring] - See instructions Kelvin Martinez MD [Primary Care Provider] - See instructions Clinical Impressions Clinical Impression: Back pain, lumbosacral, Compression fracture Instructions Patient Instructions: DI for Low Back Pain Discharge ED Provider: Cesar Bingham General Adult HPI <Morgan Marroquin MD - Last Filed: 01/08/23 14:43> General Chief complaint: Back Pain/Injury Stated complaint: back pain Time Seen by Provider: 01/08/23 14:29 Mode of Arrival: EMS Source of Information: Patient and EMS Limitations: No Limitations Description of Symptoms (Recalled from ER Triage Doc. by RN): pt had a recent back injection with dr gibbs on 01/05, today while at home patient brushed up against a door knob and it has caused a new amount of excruiating of pain. ems gave pt 12.5 mcg fentanyl and 4mg of zofran. History of Present Illness HPI narrative: Patient is a 72-year-old female here with low back pain. She presented to the emergency department a month ago with similar low back pain was found to have some chronic compression fractures she followed up with Dr. Gibbs with anesthesia and pain medicine and she had sacroiliac joint injections with lidocaine bupivacaine and steroids. She states that she felt great the last few days including this morning however she was walking and brushed up against a doorknob and it struck the middle of her low back and she had severe pain secondary to that. She has not had any bowel or urine incontinence no lower extremity paresthesias or weakness no saddle anesthesia no fevers etc. She Stating that she was having hip pain but when asked articulate exact location of her symptoms she points to her lower back in the midline and just off to the bilateral sacroiliac regions. Related Data Home Medications Medication Instructions Recorded Confirmed aspirin 81 mg chewable tablet 81 mg PO DAILY heart health 10/26/20 01/05/23 bisoprolol 10 1 each PO DAILY bp 10/26/20 01/05/23 mg-hydrochlorothiazide 6.25 mg tablet hydroxychloroquine 200 mg tablet 200 mg PO DAILY ra/lupus 10/26/20 01/05/23 lisinopril 40 mg tablet 40 mg PO DAILY bp 10/26/20 01/05/23 mecobalamin (vitamin B12) 1,000 1,000 mcg PO DAILY Supplement 10/26/20 01/05/23 mcg chewable tablet omeprazole 40 mg capsule,delayed 40 mg PO DAILY stomach 10/26/20 01/05/23 release potassium 99 mg tablet 99 mg PO DAILY Supplement 10/26/20 01/05/23 pravastatin 40 mg tablet 40 mg PO HS Cholesterol 10/26/20 01/05/23 escitalopram oxalate 5 mg tablet 5 mg PO DAILY Depression 11/01/20 01/05/23 umeclidinium
--- NOTE | 2023-01-08 16:43 | PC.NURSE ---
pt ambulated to bathroom
--- NOTE | 2023-01-08 17:42 | PC.NURSE ---
pt is complaining of back pain coming back after she got up and moved to walk to bathroom, ER md made aware and verbal orders given. pt has been ready for re eval / dispo decision since 1529. PT rechecked and felling better, offered refreshments to patient and family and apolgized for wait due to a procedure taking place in ER
--- NOTE | 2023-01-08 19:00 | PC.NURSE ---
Dr. Bingham spoke with [facility]. Waiting for call back.
--- NOTE | 2023-01-08 19:18 | PC.NURSE ---
assumed care of patient at this time. patient is alert, oriented, interactive. denies pain at t his momemnt. daughter at bedside
--- NOTE | 2023-01-08 20:08 | PC.NURSE ---
Called [facility] transfer center to recheck status of return call, Mouna advised that Dr. Patrick is still in the OR at this time. Pt/Family updated.
--- NOTE | 2023-01-08 20:53 | PC.NURSE ---
Pt verbalized that she was ready to leave and could call to make her follow up appointment. MD verbalized that he was agreeable with this.
--- NOTE | 2023-01-08 21:20 | PC.NURSE ---
Went to d/c pt, daughter and pt wishing to speak with Dr Bingham. Dr felipe
--- NOTE | 2023-01-08 21:42 | PC.NURSE ---
AT bedside with Dr Bingham,pt informed pain medicine will be called in to her phamacy, pt w/c to lobby , daughter to transport pt home
== END 2023-01-08 21:48 | disposition home or self-care (01) ==
PROVIDERS: Emergency Provider Emergency Medicine; PCP Internal Medicine Adolescent Medicine
DX: S32.020A Wedge compression fracture of second lumbar vertebra, initial encounter for closed fracture (principal); S32.030A Wedge compression fracture of third lumbar vertebra, initial encounter for closed fracture; S32.040A Wedge compression fracture of fourth lumbar vertebra, initial encounter for closed fracture; W22.8XXA Striking against or struck by other objects, initial encounter; F41.9 Anxiety disorder, unspecified; I25.10 Atherosclerotic heart disease of native coronary artery without angina pectoris; J44.9 Chronic obstructive pulmonary disease, unspecified; K21.9 Gastro-esophageal reflux disease without esophagitis; E78.5 Hyperlipidemia, unspecified; I10 Essential (primary) hypertension
CPT/HCPCS: 72131; 72192; 96374; 96375; 96376; 99285

== ENCOUNTER → 2023-01-24 13:43 | Outpatient (POV) | payer MEDICARE, SELFPAY ==
[2023-01-24 14:13] VITALS: BP 138/68; PULSE 64; RESP 18; O2SAT 93; BMI 22.0
--- NOTE | 2023-01-24 14:50 | EXP.PAIN.SOA ---
[facility] Pain Management SOAP Note Subjective:: Patient is a a pleasant 72-year-old female who presents today for follow-up of lumbar imaging and bilateral SI injection on 01/05/2023. We are currently treating the patient for degenerative disc disease of lumbar spine with lumbar radiculopathy symptoms, bilateral sacroiliitis, lumbar spondylosis. Patient does state that her pain today is a 4 out of 10. Patient states that following her injection she did have 100% relief lasting approximately 3 days. Patient does state at that time she fell into a doorknob and had significant pain where she did go to the ER for evaluation. Patient did have additional imaging that did show an acute compression fracture new from her previous imaging. Patient does state her pain is a aching, throbbing sensation that is worse with increased activity. Patient does state that she is scheduled to see Merari Adair this coming month regarding possible evaluation of her compression fracture. She is currently managed on [place] 7.5 mg 3 times a day from Dr. Martinez's office. Patient denies any side effects from this medication. Her Jerry is [phone]. Its been reviewed and appropriate. Review of Systems: General: No recent weight changes, no fever, no sleep disturbances Respiratory: No cough, no shortness of air, no recurring pulmonary infections Cardiovascular/peripheral vascular: No chest pain, no palpitations, no edema, no shortness of breath Gastrointestinal: No new onset incontinence, normal bowel movements reported Genitourinary: No new onset incontinence Musculoskeletal: Low back pain Psychiatric: [Normal mood/affect] Neurological: [Denies weakness in extremities], [denies balance issues] Objective:: Physical Exam: General: Alert and oriented x3, no acute distress, pleasant and cooperative Lungs: Respirations even and unlabored, symmetrical chest expansion Eyes: PERRL Musculoskeletal: Flexion and extension of lumbar [spine] somewhat guarded secondary to pain, [antalgic gait noted] Neurological: Speech clear, no gross sensory deficit TECHNIQUE: Axial imaging of the lumbar spine was obtained without contrast. Reformatted images were also obtained and reviewed.This study was performed with techniques to keep radiation doses as low as reasonably achievable, (ALARA). Individualized dose reduction techniques using automated exposure control or adjustment of mA and/or kV according to the patient's size were employed. CLINICAL HISTORY: severe SI joint pain and midline L spine pain- had back injections done sunday COMPARISON: 12/16/2022 FINDINGS: There are chronic L2 and L4 compression fractures. There is a mild inferior endplate L3 compression fracture which is new from prior exam with 30% loss of height. There is no malalignment. Facets are properly aligned. Prevertebral soft tissues unremarkable. T12-L1: Annular disc bulge. L1-2: Annular disc bulge with facet arthropathy and osteophytes. Mild bilateral neuroforaminal narrowing. L2-3: Annular disc bulge with facet arthropathy and osteophytes. Left foraminal disc protrusion with moderate right and severe left neuroforaminal narrowing. L3-4: Annular disc bulge with facet arthropathy and osteophytes. Moderate bilateral neuroforaminal narrowing. L4-5: Annular disc bulge with facet arthropathy and mild bilateral neuroforaminal narrowing. L5-S1: Annular disc bulge with facet arthropathy. IMPRESSION: New L3 inferior endplate compression fracture. Worsening left foraminal disc protrusion T3. Findings can be further evaluated with MRI. Reviewed, Interpreted and Dictated by Zackery Donato III, MD Transcribed by Malini Freeman Authenticated and [facility] Assessment:: Degenerative disc disease of lumbar spine with lumbar radiculopathy symptoms, bilateral sacroiliitis, lumbar spondylosis, chronic compression fractures Plan:: Patient co
== END ==
PROVIDERS: Visit Provider Nurse Practitioner Family
DX: M51.16 Intervertebral disc disorders with radiculopathy, lumbar region (principal); M46.1 Sacroiliitis, not elsewhere classified; M47.26 Other spondylosis with radiculopathy, lumbar region; M84.48XS Pathological fracture, other site, sequela
CPT/HCPCS: 99212; G0463

== ENCOUNTER → 2023-02-19 13:17 | Outpatient (POV) | payer MEDICARE, SELFPAY ==
[2023-02-19 14:11] VITALS: BP 162/79; PULSE 58; RESP 20; BMI 22.4
--- NOTE | 2023-02-19 14:44 | EXP.PAIN.SOA ---
[facility] Pain Management SOAP Note Subjective:: Patient is a pleasant 72-year-old female who presents today for follow-up. We are currently treating the patient for degenerative disc disease of lumbar spine with lumbar radiculopathy symptoms, bilateral sacroiliitis, lumbar spondylosis, acute compression fractures. Today she rates her pain a 6 out of 10. Patient states from our last visit she did see Merari Adair who did not recommend the kyphoplasty procedure. Patient also states when she went to this visit she states that she did have a new T4 compression fracture. Patient does have significant osteoporosis and is on Prolia injections that she has had 3 up to this point. Patient states that she did not have any additional injuries or falls that initially led to this new compression fracture. Patient was previously prescribed [place] from her primary care provider however she states that she is no longer on this medication. She is requesting anything we can provide to help with her daily aches and pains. Her Jerry is [phone]. Its been reviewed and appropriate. Review of Systems: General: No recent weight changes, no fever, no sleep disturbances Respiratory: No cough, no shortness of air, no recurring pulmonary infections Cardiovascular/peripheral vascular: No chest pain, no palpitations, no edema, no shortness of breath Gastrointestinal: No new onset incontinence, normal bowel movements reported Genitourinary: No new onset incontinence Musculoskeletal: Mid back pain Psychiatric: [Normal mood/affect] Neurological: [Denies weakness in extremities], [denies balance issues] Objective:: Physical Exam: General: Alert and oriented x3, no acute distress, pleasant and cooperative Lungs: Respirations even and unlabored, symmetrical chest expansion Eyes: PERRL Musculoskeletal: Flexion and extension of thoracic [spine] somewhat guarded secondary to pain, [antalgic gait noted] Neurological: Speech clear, no gross sensory deficit Assessment:: Degenerative disc disease of lumbar spine with lumbar radiculopathy symptoms, bilateral sacroiliitis, lumbar spondylosis, acute compression fractures, osteoporosis Plan:: I have counseled the patient that we can do thoracic epidurals as needed for her chronic pain however we do want to monitor her progression with her osteoporosis. I will order the patient a new back brace to help support and stabilize her compression fractures of her thoracic spine. I will also order the patient compounding cream. Patient denies any heart or kidney issues. I will order the patient diclofenac 75 mg twice daily and provide a 2-week supply of this medication. I have counseled the patient if this medication does help she can call our office between now and her next visit for additional refills. I have counseled the patient to discontinue all other NSAIDs while taking this medication and to take with food to minimize GI upset. Patient will return to clinic in 1 month for reevaluation of symptoms and plan of care. Patient has been instructed to contact the clinic with any concerns before the next appointment. Dr. Gibbs has reviewed this note and agrees with this plan of care. This note was dictated using voice recognition software and make contain errors or omissions. [facility] Disclaimer: The information contained in this section may have been updated after the patient was seen, as this information can be updated by other users. Medical History (Updated 01/08/23 @ 20:55 by Cesar Bingham MD) Anxiety Arthritis CAD (coronary artery disease) COPD (chronic obstructive pulmonary disease) GERD (gastroesophageal reflux disease) HLD (hyperlipidemia) HTN (hypertension) Surgical History H/O blepharoplasty H/O colonoscopy Family History (Updated 01/05/23 @ 11:54 by Merari Matthews RN) Other No significant family history Social History (Reviewed 01/05/23 @ 11:54 by Me
== END ==
PROVIDERS: PCP Internal Medicine Adolescent Medicine; Visit Provider Nurse Practitioner Family
DX: M51.16 Intervertebral disc disorders with radiculopathy, lumbar region (principal); M47.26 Other spondylosis with radiculopathy, lumbar region; M46.1 Sacroiliitis, not elsewhere classified; M19.90 Unspecified osteoarthritis, unspecified site; M84.48XS Pathological fracture, other site, sequela
CPT/HCPCS: 99212; G0463

== ENCOUNTER → 2023-03-19 11:22 | Outpatient (POV) | payer MEDICARE, SELFPAY ==
--- NOTE | 2023-03-19 12:21 | A.OFFVIS_ITS ---
[facility] Pain Management SOAP Note Subjective:: This patient is a very pleasant 72-year-old female comes our clinic today for medication refill. Diclofenac 75 mg 1 p.o. twice daily. Patient had a 2-week dose of the medication. Patient states it may be helping to some degree. However, she does have a refill scheduled. Patient complained of low back pain off the midline bilaterally. She states she is having difficulty standing from a sitting position. She is having difficulty ambulating due to this low back pain. Upon examination she has extreme point tenderness in the bilateral sacroiliac joints. She has positive Gaenslen's test bilaterally. Positive Tootie's test bilaterally. Positive bilateral sacroiliac joint compression test. Patient underwent bilateral sacroiliac joint injections November 2022. She reports significant improvement terms of her overall low back pain following the injections. She is requesting a repeat. I think this is reasonable given her symptoms and degree of relief with prior injections. Objective:: Patient is awake alert [place] x3. In no acute distress. Flexion-extension lumbar spine somewhat guarded secondary to pain. Deep tendon reflexes upper and lower extremities normal. Motor strength upper and lower extremities normal. There is no gross sensory deficit. Gait is normal. Assessment:: Bilateral sacroiliitis. Degenerative disc lumbar spine multilevels. Lumbar radiculopathy. Multilevel disc bulge lumbar spine. Multilevel lumbar facet arthropathy. Plan:: We will schedule patient for bilateral sacroiliac joint injections. I discussed in detail with the patient regarding the injections, risk and benefits. Patient's Jerry #[id number] has been reviewed and appropriate. [facility] Disclaimer: The information contained in this section may have been updated after the patient was seen, as this information can be updated by other users. Medical History (Updated 01/08/23 @ 20:55 by Cesar Bingham MD) Anxiety Arthritis CAD (coronary artery disease) COPD (chronic obstructive pulmonary disease) GERD (gastroesophageal reflux disease) HLD (hyperlipidemia) HTN (hypertension) Surgical History H/O blepharoplasty H/O colonoscopy Family History (Updated 01/05/23 @ 11:54 by Merari Matthews RN) Other No significant family history Social History Smoking Status: Never smoker second hand exposure: No alcohol intake: never substance use type: denies use current occupational status: other Travel in the last 8 weeks: None housing: house current occupational exposures/hazards: No caffeine: Yes
[2023-03-19 14:24] VITALS: BP 136/71; PULSE 59; RESP 18; O2SAT 97; BMI 22.4
== END ==
PROVIDERS: PCP Internal Medicine Adolescent Medicine; Visit Provider Nurse Anesthetist, Certified Registered
DX: M46.1 Sacroiliitis, not elsewhere classified (principal); M51.16 Intervertebral disc disorders with radiculopathy, lumbar region; M47.26 Other spondylosis with radiculopathy, lumbar region
CPT/HCPCS: 99212; G0463

== ENCOUNTER 2023-08-13 14:59 | Outpatient (CLI) | payer MEDICARE, SELFPAY ==
[2023-08-13 15:39] LABS: Basophils # 0.2 K/mm3 (0-0.2); Basophils % 1.2 % (0.1-2.0); Eosinophils % 0.1 % (0.1-12.0); Hematocrit 41.4 % (37.0-47.0); Hemoglobin 13.4 g/dL (12.2-16.2); Lymphocytes # 1.5 K/mm3 (0.7-4.5); Lymphocytes % 8.6 % (10-50); Mean Corpuscular HGB Conc 32.5 g/dL (31.8-35.4); Mean Corpuscular Volume 104.6 fl (81-99); Mean Platelet Volume 8.2 fl (7.4-10.4); Monocytes # 0.7 K/mm3 (0.1-1.0); Monocytes % 3.8 % (1.7-9.3); Neutrophils # 14.5 K/mm3 (1.8-7.8); Neutrophils % 86.2 % (37.0-80.0); Platelet Count 296 K/mm3 (142-424); Red Blood Count 3.95 M/mm3 (4.20-5.40); Red Cell Distribution Width 13.4 % (11.5-17.5); White Blood Count 16.8 K/mm3 (4.8-10.8)
[2023-08-13 15:44] LABS: MANUAL DIFFERENTIAL MANUAL DIFFERENTIAL (MANUAL DIFF)
[2023-08-13 15:52] LABS: Chloride 107 mmol/L (98-107); Potassium 4.7 mmoL/L (3.5-5.1); Sodium 140 mmol/L (136-145)
[2023-08-13 15:54] LABS: Blood Urea Nitrogen 13 mg/dl (7-17); Estimated Glomerular Filt Rate 82 ml/min (>60); GFR (African American) 99 ML/MIN (>60)
[2023-08-13 15:55] LABS: Alanine Aminotransferase 26 U/L (12-78); Albumin Level 4.1 g/dl (3.5-5.0); Albumin/Globulin Ratio 1.9 (1.1-1.8); Alkaline Phosphatase 49 U/L (38-126); Anion Gap 11.7 mEq/L (5-15); Aspartate Amino Transferase 33 U/L (14-36); Bilirubin,Total 0.4 mg/dl (0.2-1.3); Calcium 10.1 mg/dl (8.4-10.2); Carbon Dioxide 26 mmol/L (22.0-30.0); Globulin 2.2 g/dL (1.3-3.2); Glucose 94 mg/dl (74-100); Total Protein,Serum 6.3 g/dl (6.3-8.2)
[2023-08-13 16:43] LABS: Lymphocytes % 12 % (10-50); Monocytes % 7 % (2-9); Neutrophils % 80 % (42-76); Total Cells Counted 100
[2023-08-13 16:44] LABS: Macrocytosis 1+; Platelet Estimate Normal
== END 2023-08-13 23:59 ==
LOC: LAB 15:01
PROVIDERS: PCP Internal Medicine Adolescent Medicine; Visit Provider Nurse Practitioner Family
DX: R10.31 Right lower quadrant pain (principal); R10.32 Left lower quadrant pain; R19.01 Right upper quadrant abdominal swelling, mass and lump; R19.03 Right lower quadrant abdominal swelling, mass and lump
CPT/HCPCS: 36415; 80053; 85007; 85025

== ENCOUNTER 2023-08-14 10:08 | Outpatient (CLI) | payer MEDICARE, SELFPAY ==
--- NOTE | 2023-08-14 10:15 | CT_ITS ---
FINAL REPORT TECHNIQUE: After the administration of oral and intravenous contrast, axial images were obtained through the abdomen and pelvis by computed tomography. The study was performed with techniques to keep radiation dose as low as reasonably achievable, (ALARA). Individual dose reduction techniques using automated exposure control or adjustment of mA and/or kV according to the patient's size were employed. CLINICAL HISTORY: ABD PAIN,ABD MASS RLQ ABD MASS RUQ FINDINGS: Abdomen: The lung bases are clear. There is a large hiatal hernia. Multiple hepatic cysts are identified. There is presumed cholecystectomy. There is mild extrahepatic biliary ductal dilatation, may represent post cholecystectomy change. The spleen is unremarkable. The adrenals are normal. The pancreas is unremarkable. Multiple renal cysts are identified. There is an anterior right abdomen wall hernia containing fat. Hernia sac measures 6.3 cm in transverse dimension. The aorta is normal in caliber. There is no free fluid or adenopathy. Pelvis: The appendix is not identified. Right iliac artery stent is present. The urinary bladder is unremarkable. There is no free fluid or adenopathy. IMPRESSION: Mild extrahepatic biliary ductal dilatation, may represent post cholecystectomy change. Large hiatal hernia. Reviewed, Interpreted and Dictated by Zackery Donato III, MD Transcribed by Aileen Ibarra Authenticated and [facility]
[2023-08-14] MEDS: BARIUM SULFATE(READI-CAT2);450ML BOTTLE 450 ML PO (10:37)
[2023-08-14] MEDS: IOPAMIDOL-370 (76%);100ML BOTTLE 75 ML IV (10:38)
== END 2023-08-14 23:59 ==
LOC: RAD 10:08
PROVIDERS: PCP Internal Medicine Adolescent Medicine; Visit Provider Nurse Practitioner Family
DX: R10.31 Right lower quadrant pain (principal); R10.32 Left lower quadrant pain; R19.01 Right upper quadrant abdominal swelling, mass and lump; R19.03 Right lower quadrant abdominal swelling, mass and lump
CPT/HCPCS: 74177; Q9967

== ENCOUNTER 2023-08-31 10:34 | Outpatient (CLI) | payer MEDICARE, SELFPAY ==
--- NOTE | 2023-08-31 10:34 | CA_ITS ---
APPROVED REPORT EXAM: Comprehensive 2D, Doppler, and color-flow Echocardiogram Dormitory Counselor: Adelaide Vale RT(R) Ht: 5 ft 5 in Wt: 129lbs BSA: 1.64 BP: 132/62 mmHg Indications: CAD, pre op assessment, hernia repair, COPD, HTN, hyperlipidemia, h/o PVD 2D Dimensions LA Volume 48.70 mL LA Volume Index 29.70 mL/m2 (M/F) 16-34 EF AP4 64.80 % GL Strain -13.6 % M-Mode Dimensions RVDd 3.10 cm (0.9-2.6) LA Diam 4.24 cm (1.9-4.0) LVDd 4.75 cm (3.5-5.7) LVDs 3.30 cm (3.5-5.7) IVSd 0.89 cm (0.6-1.1) PWd 0.72 cm (0.6-1.1) EF (Teich) 58.00% FS 30.50% EDV (Teich) 104.90 mL ESV (Teich) 44.10 mL LV Diastology E Decel Time 150 (160-240 msec) E/A Ratio 1.2 Mitral Valve MV E Max Serge. 94.0 (40-130 cm/s) MV A Velocity 81.0 (40-130 cm/s) E/A Ratio 1.16 MV PHT 44.0 ms Left Ventricle The left ventricle is normal size. The left ventricular systolic function is normal. The left ventricular ejection fraction is within the normal range. There is increased LV wall thickness. There is normal LV segmental wall motion. The left ventricular diastolic function is normal. LVEF is 55%. Right Ventricle Right ventricle is mildly dilated. Right ventricle is mildly hypokinetic. Atria Left atrium is mildly dilated. Right atrium is mildly dilated. There is no Doppler evidence of interatrial shunt. Aortic Valve The aortic valve is mildly thickened. There is no aortic valvular stenosis. Trace aortic regurgitation. Mitral Valve The mitral valve is mildly thickened. No evidence of mitral valve stenosis. Mild mitral regurgitation. Tricuspid Valve The tricuspid valve leaflets are thin and pliable. Trace tricuspid regurgitation. Pulmonic Valve The pulmonary valve is normal in structure. Trace pulmonic regurgitation. Great Vessels The aortic root is normal in size. The ascending aorta is normal in size. IVC is normal in size and collapses >50% with inspiration. Pericardium Trivial pericardial effusion. There are no echo indications of tamponade. Other Information Study Quality: Fair Conclusion Normal biventricular systolic function (LVEF 55%). Mild RV dilation with mild reduction in RV function. Mild biatrial dilation. Mild MR. Trivial pericardial effusion. There are no echo indications of tamponade. Electronically signed by : Irma Hernández MD 09/04/2023 21:25:08
== END 2023-08-31 23:59 ==
LOC: RT 10:34
PROVIDERS: PCP Internal Medicine Adolescent Medicine; Visit Provider Internal Medicine
DX: I25.118 Atherosclerotic heart disease of native coronary artery with other forms of angina pectoris (principal); I73.9 Peripheral vascular disease, unspecified; Z01.810 Encounter for preprocedural cardiovascular examination; R53.83 Other fatigue
CPT/HCPCS: 93306

== ENCOUNTER 2023-09-18 13:42 | Outpatient (CLI) | payer MEDICARE, SELFPAY ==
[2023-09-18 13:56] LABS: Basophils # 0.1 K/mm3 (0-0.2); Basophils % 0.7 % (0.1-2.0); Eosinophils % 0.5 % (0.1-12.0); Hematocrit 38.7 % (37.0-47.0); Hemoglobin 13.1 g/dL (12.2-16.2); Lymphocytes # 1.3 K/mm3 (0.7-4.5); Lymphocytes % 15.4 % (10-50); Mean Corpuscular HGB Conc 33.7 g/dL (31.8-35.4); Mean Corpuscular Hemoglobin 33.7 pg (27.0-31.2); Mean Platelet Volume 7.9 fl (7.4-10.4); Monocytes # 0.5 K/mm3 (0.1-1.0); Monocytes % 5.6 % (1.7-9.3); Neutrophils # 6.7 K/mm3 (1.8-7.8); Neutrophils % 77.7 % (37.0-80.0); Platelet Count 274 K/mm3 (142-424); Red Blood Count 3.87 M/mm3 (4.20-5.40); Red Cell Distribution Width 13.7 % (11.5-17.5); White Blood Count 8.6 K/mm3 (4.8-10.8)
[2023-09-18 15:06] LABS: Anion Gap 12.9 mEq/L (5-15); Blood Urea Nitrogen 16 mg/dl (7-17); Calcium 10.3 mg/dl (8.4-10.2); Carbon Dioxide 25 mmol/L (22.0-30.0); Chloride 105 mmol/L (98-107); Estimated Glomerular Filt Rate 70 ml/min (>60); GFR (African American) 85 ML/MIN (>60); Glucose 96 mg/dl (74-100); Potassium 3.9 mmoL/L (3.5-5.1); Sodium 139 mmol/L (136-145)
== END 2023-09-18 23:59 | disposition home or self-care (01) ==
LOC: LAB 13:43
PROVIDERS: PCP Internal Medicine Adolescent Medicine; Visit Provider Surgery
DX: K43.9 Ventral hernia without obstruction or gangrene (principal)
CPT/HCPCS: 36415; 80048; 85025

== ENCOUNTER 2023-10-01 10:09 | Day surgery (SDC) | payer MEDICARE, SELFPAY ==
[2023-10-01] VITALS (9 sets, daily range): BP systolic 134–163; BP diastolic 60–86; PULSE 58–66; RESP 10–18; TEMP 36.2–43; O2SAT 91–99; BMI 20.7
[2023-10-01] MEDS: LACTATED RINGERS 1000ML 1,000 ML 25 ML IV (11:15)
--- NOTE | 2023-10-01 11:36 | EXP.ANES.CKL ---
[facility] Disclaimer: The information contained in this section may have been updated after the patient was seen, as this information can be updated by other users. Medical History Arthritis HTN (hypertension) HLD (hyperlipidemia) GERD (gastroesophageal reflux disease) CAD (coronary artery disease) COPD (chronic obstructive pulmonary disease) Anxiety Surgical History Stented coronary artery History of cardiac cath H/O blepharoplasty H/O colonoscopy Family History Other No significant family history Social History (Updated 10/01/23 @ 11:06 by Gali Cardenas RN) Smoking Status: Never smoker second hand exposure: No alcohol intake: never substance use type: denies use current occupational status: retired Travel in the last 8 weeks: None housing: house current occupational exposures/hazards: No caffeine: Yes [facility] Anesthesia Checklist Patient Identification Patient Identification: Arm Band and Verbal (Name & ) Structural Data Admitted From: Home Planned Operative Procedure/s: Lap. ventral hernia repair Consent for Planned Operative Procedure(s) Verified: Yes NPO Status Verified Time NPO: 00:00 Chart Verification Results Verified: CBC and BMP Additional verifications Anesthesia Reactions: No Hx Blood Transfusions: No Blood Transfusion Reaction: No Airway Assessment Mallampati Score:: Class II C-Spine Mobility Assessed: Yes TMJ Mobility Assessed: Yes Dentition: Dentures-good fit (Removed) Neurological Assessment Level of Consciousness: Awake Hx Seizures: No Numbness or tingling in extremities: No Anesthesia Plan Anesthesia Risk discussed: Yes Anesthesia Plan: Verified ASA Class: III Anesthesia Type: General
[2023-10-01] MEDS: CEFAZOLIN SODIUM 1 GM in 0.9 % SODIUM CHLORIDE 50 ML IV (12:30)
[2023-10-01] MEDS: ROPIVACAINE 0.5% 30ML VIAL 150 MG (12:47)
[2023-10-01] MEDS: LIDOCAINE 1% 20ML MDV 20 ML (12:47)
--- NOTE | 2023-10-01 13:10 | P.OP_ITS ---
Date of procedure: 10/01/23 Pre-op Diagnosis:: Possible ventral hernia Post-op Diagnosis:: Same Procedure performed:: Diagnostic laparoscopy Surgeon:: Zackery Alvarado MD COMPUTER SUPPORT ANALYST:: Diane Maxwell Anesthesia: GETA Estimated blood loss (mL): 5 Clinical Note:: Patient presents for planned attempt at laparoscopic ventral hernia repair. She is a 73-year-old female referred by Hailey wasserman at Dr. Brown office for abdominal hernia. Primary care provider is Kelvin Martinez MD. many years ago she underwent open cholecystectomy. She states that for the past few months she has had some swelling and protrusion with tenderness in the right lower abdomen. It has increased in size and become more symptomatic. She states that she occasionally feels and hears gurgling in the area. She underwent a CT scan recently on 08/14/2023. According to the impression there is mild extrahepatic biliary ductal dilatation, may represent postcholecystectomy change. Large hiatal hernia. However review of the findings in the body of the report reveals right anterior abdominal wall hernia containing fat with 6.3 cm hernia sac. After my initial evaluation was noted that she had a right lower quadrant ventral hernia which was quite symptomatic. I reviewed her images. This seems rather unusual on imaging. This may be a Spigellian type hernia. It appears as though she likely has fascial defect with dissection of hernia into the rectus sheath likely has a Spigellian hernia. I felt that the best plan of action, particularly given her symptomatology, increasing size, and apparent intermittent bowel involvement based on her symptoms of the sensation and gurgling in the hernia would be to proceed with repair with laparoscopy. Possibly laparoscopically directed versus fully laparoscopic repair. Operative findings:: Patient had unusual intra-abdominal findings of the anterior abdominal wall. 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 No clearly defined hernia fascial defect. She had extensive adhesions in the right upper quadrant from previous open cholecystectomy including liver and stomach adherent to the anterior abdominal wall. There was an incidental tiny right inguinal hernia. Operative note:: Consent was obtained patient was taken to the operating room. She was given preoperative intravenous antibiotics. In the operating room she was placed in a supine position. General anesthesia was induced via endotracheal tube. Parikh catheter was placed. Abdomen was prepped and draped in the standard surgical fashion. Through small left subcostal incision optical trocar was inserted under visualization into the peritoneal cavity. CO2 pneumoperitoneum was achieved to 15 mmHg. 5 mm laparoscope was inserted. Abdominal surveillance was carried out and she was noted to have some appreciable adhesions in the right upper abdomen from previous open cholecystectomy. These were not disrupted. Inspection was carried out of the anterior abdominal wall which had a rather unusual appearance. 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 To better evaluate an additional 5 mm trocar was inserted in the right lateral lower abdomen. Thorough inspection was carried out. There was a shelf of peritoneum towards the upper aspect of this. There was incidentally noted to be a tiny inguinal hernia. It appeared as though there was at least appreciable deficiency of right-sided abdominal wall musculature versus even congenital absence of said abdominal wall musculature. It was felt that this could not be reconstructed or repaired in a traditional hernia repair type manner. She could require extensive reconstruction of the right anterior abdominal wall. Therefore at this time the procedure was terminated. There was good hemostasis. Trocars were removed. CO2 pneumoperitoneum was evacuated. Local anesthetic was infiltrated into the 2 small trocar sites. Skin incisions were closed with 4-0 Monocryl in a subcuticular fashion. Clean dry sterile dressings were applied. Condition: stable Disposition: PACU Complications:: None immediately apparent
--- NOTE | 2023-10-01 13:21 | EXP.ANES.I ---
[facility] Anesthesia Record Part I Anesthesia Record I Intake, IV Amount: 700 Hydration: Adequate Estimated blood loss (mL): 10 Urine output (mL): 100 Blood Products used (#): none Blood Pressure: 149/80 SaO2: 95 Pulse Rate: 66 Airway Patency: Patent Respiratory Rate: 16 Temperature: 97.8 F Patient is:: Awake (Talking) and Stable Stable to PACU at:: 13:20
--- NOTE | 2023-10-01 13:28 | SUR.PHASEI ---
Patient charting and care in phase 1 was completed by Genevieve Rincon, Nurse Musician Instrumental under my direct supervision
[2023-10-01 15:17] LABS: Microscopic,Cath URINE MICROSCOPIC (MICROSCOPIC)
[2023-10-01 15:29] LABS: Appearance,Urine/Cath CLEAR (Clear); Bilirubin,Cath Negative (Negative); Blood, Urine/Cath Negative (Negative); Color,Urine/Cath YELLOW (Yellow); Glucose,Urine/Cath (UA) Negative (Negative); Ketones,Urine/Cath Negative (Negative); Leukocyte Esterase,Cath Negative (Negative); Nitrate,Cath Negative (Negative); Protein,Urine/Cath Negative (Negative); Urobilinogen,Cath 0.2 EU/dl (0.2)
[2023-10-01 16:35] LABS: RBC,Urine/Cath Occasional # /hpf (0-3)
[2023-10-01 16:36] LABS: Bacteria,Urine/Cath TRACE /lpf; Squamous Epithelial Ur./Cath Occasional #/hpf (0-5)
--- NOTE | 2023-10-02 08:13 | P.PNANES_ITS ---
[facility] Anesthesia Record Part II Anesthesia Record Part II Discharge Time: 13:34 Destination: Surgical Day Care (OP Surgery) PACU nurse assessment reviewed?: Yes Patient Condition:: Good Anesthesia Complications:: None Swallowing reflex intact?: Yes Airway Patency: Patent Cyanosis?: No Blood Pressure: 143/72 SaO2: 197 Respiratory Rate: 10 Pulse Rate: 62 Temperature: 97.8 F Mental Status: Alert & Oriented Pain level:: 0 Nausea and/or vomitting:: None Intake, IV Amount: 700 Hydration: Adequate
[2023-10-02 08:15] VITALS: BP 143/72; PULSE 62; RESP 10; TEMP 36.6; O2SAT 197
== END 2023-10-01 14:11 | disposition home or self-care (01) ==
PROVIDERS: PCP Internal Medicine Adolescent Medicine; Visit Provider Surgery
PROC: 0WQF4ZZ Repair Abdominal Wall, Percutaneous Endoscopic Approach (ICD-10-PCS; CPT 49651; principal; 2023-10-01 11:45)
DX: K40.91 Unilateral inguinal hernia, without obstruction or gangrene, recurrent (principal); Z53.8 Procedure and treatment not carried out for other reasons
CPT/HCPCS: 49651; 81001; 96374; J3490; J2405

== ENCOUNTER 2023-12-03 08:15 | Outpatient (CLI) | payer MEDICARE, SELFPAY ==
--- NOTE | 2023-12-03 08:28 | FL_ITS ---
FINAL REPORT CLINICAL HISTORY: 95.53 MGY 1390.12 DAP HIATAL HERNIA HX OF ESOPHAGEAL DILATION FINDINGS: AIR CONTRAST UPPER GI HISTORY: History of hiatal hernia. COMPARISON: March 16, 2021. TECHNIQUE: The patient ingested thick and thin barium contrast. Effervescent crystals were also administered. Spot and overhead films were performed. A total of 50 images were saved. FINDINGS: There is a moderate hiatal hernia. This appears larger than on the patient's previous examination dated February 2021. Esophageal motility appears normal. The stomach is of normal size, shape and position. No gastric filling defects are seen. The duodenal bulb and sweep appear unremarkable. No episodes of gastroesophageal reflux observed. 13 mm barium tablet passes easily through the esophagus and into the stomach. FLUROSCOPY TIME: 2 minutes, 26 seconds Radiation exposure in Total DAP: 1390.12 uGym2 IMPRESSION: Moderate hiatal hernia, larger than previous. Otherwise, unremarkable upper GI. Reviewed, Interpreted and Dictated by Zackery Donato III, MD Transcribed by Carline Shah PA-C Authenticated and [facility]
[2023-12-03] MEDS: BARIUM SULFATE (E-Z-HD 340GM);135ML BOTTLE 135 ML PO (09:15)
[2023-12-03] MEDS: BARIUM SULFATE(LIQUID E-Z-PAQUE);355ML BOTTLE 355 ML PO (09:15)
[2023-12-03] MEDS: E-Z-GASII EFFERVESCENT GRANULES;1PK 1 EACH PO (09:15)
== END 2023-12-03 23:59 | disposition home or self-care (01) ==
LOC: RAD 08:16
PROVIDERS: PCP Internal Medicine Adolescent Medicine; Visit Provider Surgery
DX: K44.9 Diaphragmatic hernia without obstruction or gangrene (principal)
CPT/HCPCS: 74246

== ENCOUNTER 2024-03-27 08:48 | Outpatient (CLI) | payer MEDICARE, SELFPAY ==
--- NOTE | 2024-03-27 08:50 | XR_ITS ---
FINAL REPORT CLINICAL HISTORY: post menopausal COMPARISON: None FINDINGS: Using L1-4, the bone mineral density of the spine is 0.830 g/cm2, corresponding to T-score of -2.2 which is consistent with low bone density but likely falsely elevated secondary to hypertrophic changes. Using the left hip, the bone mineral density of the femoral neck is 0.504 g/cm2, corresponding to a T-score of -3.1 which is consistent with osteoporosis. Using the right hip, the bone mineral density of the femoral neck is 0.581 g/cm2, corresponding to a T-score of -2.4 which is consistent with low bone density. FRAX not reported because the patient is being treated for osteoporosis. NOTE: T-score: Standard deviation compared with peak bone mass of young adult mean. *Following the recommendations of the International Society of Bone densitometry, classification of hip BMD is based on the lower of two T-scores; total hip or femoral neck. IMPRESSION: Diminished bone mineral density consistent with osteoporosis. Reviewed, Interpreted and Dictated by Zackery Donato III, MD Transcribed by Briana Cortes Authenticated and [facility]
--- NOTE | 2024-03-27 08:51 | CT_ITS ---
FINAL REPORT TECHNIQUE: Thin section axial images were obtained from the lung apices to the upper abdomen by computed tomography. Reformatted images were obtained and reviewed. This study was performed with techniques to keep radiation doses al low as reasonably achievable (ALARA). Individualized dose reduction techniques using automated exposure control or adjustment of mA and/or kV according to the patient's size were employed. CLINICAL HISTORY: .FORMER SMOKER QUIT 6 YEARS AGO, 2PPD X41 YEARS COMPARISON: 04/21/2022 FINDINGS: CHEST CT LOW DOSE CTDI vol (mGy): 2.90 DLP (mGy-cm): 102.12 There is no axillary adenopathy. There is no mediastinal or hilar mass or adenopathy. The heart is enlarged in size. The previously noted hiatal hernia has improved. There is no pericardial or pleural effusion. There is mild emphysema and mild pulmonary scarring. Lung window images demonstrate no new suspicious infiltrate or nodule. There are several calcified granulomas. Limited images of the upper abdomen demonstrate stable nonspecific low-attenuation foci in the liver favored to represent cysts. IMPRESSION: Lung-RADS category 1. Recommend 12 month follow up low dose chest CT. Reviewed, Interpreted and Dictated by Zackery Donato III, MD Transcribed by Briana Cortes Authenticated and [facility]
--- NOTE | 2024-03-27 09:06 | MM_ITS ---
PROCEDURE INFORMATION: Exam: MG Bilateral Screening 3D Mammography Exam date and time: 03/27/2024 8:50 AM Age: 73 years old Clinical indication: Screening examination TECHNIQUE: Imaging protocol: Bilateral Screening tomosynthesis and 2D mammography including computer-aided detection (CAD) when performed. COMPARISON: MG MM DIG SCREENING MAMM BI W/CAD 12/24/2020 8:17 AM FINDINGS: MAMMOGRAPHY: Breast composition: There are scattered areas of fibroglandular density. Mass: None. Architectural distortion: None. Calcifications: No suspicious calcifications. Asymmetric density: None. Skin thickening: None. Axillary adenopathy: None. IMPRESSION: No mammographic evidence of malignancy. Annual screening is recommended unless otherwise clinically indicated. ASSESSMENT: BI-RADS Category 1: Negative.
== END 2024-03-27 23:59 | disposition home or self-care (01) ==
LOC: RAD 08:48
PROVIDERS: PCP Internal Medicine Adolescent Medicine; Visit Provider Internal Medicine Adolescent Medicine
DX: M81.0 Age-related osteoporosis without current pathological fracture (principal); Z87.891 Personal history of nicotine dependence; Z12.31 Encounter for screening mammogram for malignant neoplasm of breast
CPT/HCPCS: 71271; 77063; 77067; 77080

== ENCOUNTER 2024-10-01 13:55 | Outpatient (CLI) | payer MEDICARE, SELFPAY ==
[2024-10-01 14:38] LABS: Basophils % 0.6 % (0.1-2.0); Eosinophils % 0.4 % (0.1-12.0); Hematocrit 39.6 % (37.0-47.0); Hemoglobin 13.7 g/dL (12.2-16.2); Immature Granulocytes # 0.04 10^3uL; Immature Granulocytes % 0.6 %; Lymphocytes # 1.2 K/mm3 (0.7-4.5); Lymphocytes % 17.6 % (10-50); Mean Corpuscular HGB Conc 34.6 g/dL (31.8-35.4); Mean Corpuscular Hemoglobin 33.9 pg (27.0-31.2); Mean Platelet Volume 9.1 fl (7.4-10.4); Monocytes # 0.5 K/mm3 (0.1-1.0); Monocytes % 6.8 % (1.7-9.3); Nucleated Red Blood Cells # 0 10^3/uL; Nucleated Red Blood Cells % 0 %; Platelet Count 245 K/mm3 (142-424); Red Blood Count 4.04 M/mm3 (4.20-5.40); Red Cell Distribution Width 12.4 % (11.5-17.5); Red Cell Distribution Width-SD 44.8 fL; White Blood Count 6.7 K/mm3 (4.8-10.8)
[2024-10-01 15:06] LABS: Alanine Aminotransferase 23 U/L (12-78); Albumin Level 4.7 g/dl (3.5-5.0); Alkaline Phosphatase 47 U/L (38-126); Anion Gap 11.5 mEq/L (5-15); Aspartate Amino Transferase 29 U/L (14-36); Bilirubin,Direct 0.2 mg/dl (0.0-0.4); Bilirubin,Indirect 0.4 mg/dL (0.0-0.9); Bilirubin,Total 0.6 mg/dl (0.2-1.3); Bilirubin,Unconjugated 0.5 mg/dL (0.0-1.1); Blood Urea Nitrogen 13 mg/dl (7-17); Calcium 10.1 mg/dl (8.4-10.2); Carbon Dioxide 22 mmol/L (22.0-30.0); Chloride 108 mmol/L (98-107); Chol/HDL Ratio 2.7 (1-3.5); Cholesterol 188 mg/dl (140-200); Estimated Glomerular Filt Rate 81 ml/min (>60); GFR (African American) 98 ML/MIN (>60); Glucose 97 mg/dl (74-100); HDL Cholesterol 70 mg/dl (40-60); Potassium 4.5 mmoL/L (3.5-5.1); Sodium 137 mmol/L (136-145); Total Protein,Serum 6.8 g/dl (6.3-8.2); Triglycerides 166 mg/dl (30-150); VLDL Cholesterol 33 mg/dL (0-40)
[2024-10-01 15:17] LABS: Direct LDL Cholesterol 68.28 mg/dL (100-129)
== END 2024-10-01 23:59 | disposition home or self-care (01) ==
LOC: LAB 13:56
PROVIDERS: PCP Internal Medicine Adolescent Medicine; Visit Provider Nurse Practitioner
DX: Z01.810 Encounter for preprocedural cardiovascular examination (principal); I25.118 Atherosclerotic heart disease of native coronary artery with other forms of angina pectoris; R94.31 Abnormal electrocardiogram [ECG] [EKG]; E78.5 Hyperlipidemia, unspecified; R53.83 Other fatigue
CPT/HCPCS: 36415; 80048; 80061; 80076; 85025

== ENCOUNTER 2024-10-16 11:24 | Outpatient (CLI) | payer MEDICARE, SELFPAY ==
--- NOTE | 2024-10-16 | CA_ITS ---
APPROVED REPORT Exam: Pharmacologic Technologist: Crissy Stanley Ht: 6 ft 5 in Wt: 136 lbs BSA: 1.90 m2 HR: 67 bpm BP: 166/82 mmHg Rhythm: Nsr Medical History Medical History: HTN, Hyperlipidemia Medications: Amlidipine, Aspirin, Bisoprolol-hydrochlorothiazide, escitalopram oxalate, Hydroxychloroquine, Losartan, Potassium, Pravastatin Allergies: Codeine Cardiac Risk Factors: HTN, Hyperlipidemia Stress Test Details Test: Lexiscan HR Resting HR: 67 bpm Max Heart Rate (APMHR): 144 bpm Target HR (85% APMHR): 122 bpm Recovery HR: 81 bpm BP Resting BP: 166.0/82.0 mmHg Max BP: 166.0/82.0 mmHg Recovery BP: 160.0/80.0 mmHg ECG Resting ECG: Nsr Stress ECG Conclusion Frequent Pvcs <1.5mm ST segment changes Non-diagnostic lexiscan stress Electronically signed by : Irma Hernández MD 10/19/2024 21:26:28
--- NOTE | 2024-10-16 12:00 | NM_ITS ---
APPROVED REPORT Exam: Nuclear Stress Test Indication: Chest pain, SOB, Palpitations, Abnormal EKG, Fatigue, HTN, High cholesterol, CAD Patient Location: Outpatient Stress Tech: Crissy Stanley ID Tech:Fidelia CoffeyWILFRID RT(R)(N) Ht: 5 ft 5 in Wt: 140 lbs Bra Size: 36DD HR: 67 bpm BP: 166/82 mmHg BSA: 1.70 m2 TID: 1.03 BMI: 23.2 History: Chest pain, SOB, Palpitations, Abnormal EKG, Fatigue, HTN, High cholesterol, CAD Procedure: Patient received 0.4 mg of intravenous Lexiscan, resting heart rate 67 bpm, resting blood pressure 166/82 mmHg, with Lexiscan maximum heart rate achieved was 87 bpm which is % of the maximum predicted heart rate and blood pressure was 164/101 mmHg. With Lexiscan, patient denied any complaint of chest pain. Cardiac Stress and Resting SPECT Images: Cardiac Stress and Resting SPECT images were obtained using technetium 99m Myoview 30.2 mCi stress and 10.64 mCi at rest. Resting and stress imaging in supine and prone positions demonstrate no evidence of fixed or reversible perfusion defects. Gated imaging demonstrates normal global and regional LV systolic function. LVEF is calculated at 61%. Conclusion: No evidence of fixed or reversible perfusion defects. Gated imaging demonstrates normal global and regional LV systolic function. LVEF is calculated at 61%. Electronically signed by : Irma Hernández MD 10/19/2024 21:17:42
[2024-10-16] MEDS: ISOTOPE MYOVIEW (PER STUDY) 1 DOSE IV (13:46)
[2024-10-16] MEDS: SODIUM CHLORIDE 0.9% 10ML SYR (RAD ONLY) 10 ML IV ×2 (13:46→13:47)
[2024-10-16] MEDS: REGADENOSON 0.4MG/5ML SYRINGE 0.4 MG IV (13:46)
== END 2024-10-16 23:59 | disposition home or self-care (01) ==
LOC: RAD 11:25
PROVIDERS: PCP Internal Medicine Adolescent Medicine; Visit Provider Nurse Practitioner
DX: E78.5 Hyperlipidemia, unspecified (principal); R94.31 Abnormal electrocardiogram [ECG] [EKG]; R53.83 Other fatigue; I25.118 Atherosclerotic heart disease of native coronary artery with other forms of angina pectoris
CPT/HCPCS: 78452; 93017; 93018; 93306; A9502; J2785